=== PATIENT | female | born 1960 | race Caucasian/White ===

== ENCOUNTER 2016-09-28 08:33 | Day surgery (SDC) | payer OTHER ==
[2016-09-23 10:58] LABS: HEMATOCRIT 42.5 % (36.0-47.0); HEMOGLOBIN 13.5 g/dL (12.0-15.5); MEAN CORPUSCULAR HEMOGLOBIN 27.4 pg (27.0-33.4); MEAN CORPUSCULAR HGB CONC 31.7 g/dL (32.0-36.0); MEAN CORPUSCULAR VOLUME 87 fl (80-97); RED BLOOD COUNT 4.91 10^6/uL (3.72-5.28); RED CELL DISTRIBUTION WIDTH 14.7 % (11.5-14.0); WHITE BLOOD COUNT 10.8 10^3/uL (4.0-10.5)
[2016-09-23 11:36] LABS: ANION GAP 15 (5-19); BLOOD UREA NITROGEN 18 mg/dL (7-20); CALCIUM 9.6 mg/dL (8.4-10.2); CARBON DIOXIDE 27 mmol/L (22-30); CHLORIDE 100 mmol/L (98-107); CREATININE RESULT 0.81 mg/dL (0.52-1.25); GLUCOSE 167 mg/dL (75-110); POTASSIUM 4.5 mmol/L (3.6-5.0); SODIUM 141.7 mmol/L (137-145)
[2016-09-23 11:52] LABS: APPEARANCE,URINE CLOUDY; BILIRUBIN,URINE NEGATIVE (NEGATIVE); GLUCOSE, URINE NEGATIVE (NEGATIVE); KETONES,URINE NEGATIVE (NEGATIVE); LEUKOCYTE ESTERASE,URINE LARGE (NEGATIVE); NITRITE,URINE POSITIVE (NEGATIVE); PROTEIN,URINE NEGATIVE (NEGATIVE); URINE SPECIFIC GRAVITY 1.014; UROBILINOGEN,URINE NEGATIVE mg/dL (<2.0)
--- NOTE | 2016-09-23 14:57 | EKG REPORT ---
SEVERITY:- NORMAL ECG - SINUS RHYTHM : Confirmed by: Cheryl Chavira 23-Sep-2016 14:56:53
[~2016-09-28 08:33] MED LIST: BUPIVACAINE HCL 0.25 % INJ/PF (2.5 MG/1 ML) 30 ML VIAL ONE; CEFAZOLIN 2 GM/D5W RTU 2 GM/50 ML RTUPB IV PRN; LACTATED RINGERS 1000 ML IV PRN; LIDOCAINE 0.5% INJ-PF (5 MG/ML) 50 ML SDV SUBCUT PRN; LIDOCAINE 1%/EPINEPHRINE INJ 20 ML VIAL ONE
[2016-09-28] MEDS ORDERED: METOCLOPRAMIDE HCL INJ/PF 10 MG/2 ML SDV ONE (09:04)
[2016-09-28] MEDS ORDERED: FAMOTIDINE INJ/PF 20 MG/2 ML SDV IV ONE (09:04)
[2016-09-28] MEDS ORDERED: FENTANYL CITRATE INJ/PF 100 MCG/2 ML AMPUL ONE (09:21)
[2016-09-28] MEDS ORDERED: PROPOFOL INJ 200 MG/20 ML VIAL IV ONE (09:22)
[2016-09-28] MEDS ORDERED: MIDAZOLAM 2 MG/2 ML INJ ONE (09:22)
[2016-09-28] MEDS ORDERED: FENTANYL CITRATE INJ/PF 100 MCG/2 ML AMPUL IV PRN ×3 (09:51)
[2016-09-28] MEDS ORDERED: OXYCODONE-ACETAMINOPHEN 5-325 MG TABLET PO PRN ×2 (09:51)
[2016-09-28] MEDS ORDERED: MEPERIDINE HCL/PF INJ 25 MG/1 ML DISP.SYRIN IV PRN (09:51)
[2016-09-28] MEDS ORDERED: PROMETHAZINE HCL INJ 25 MG/1 ML VIAL IV PRN ×2 (09:51)
[2016-09-28] MEDS ORDERED: DIPHENHYDRAMINE HCL 50 MG/ML VIAL IV PRN (09:51)
[2016-09-28] MEDS ORDERED: MORPHINE SULFATE 10 MG/ML INJ IV PRN (09:51)
--- NOTE | 2016-09-28 10:05 | Operative Report ---
Operative Report DATE OF SURGERY: 09/28/16 PREOPERATIVE DIAGNOSIS: Right carpal tunnel syndrome OPERATION: Right carpal tunnel release SURGEON: NOAH DUONG ANESTHESIA: LMAC ESTIMATED BLOOD LOSS: minimal PROCEDURE: With the patient supine on the operating table the right upper extremity is prepped and draped in a sterile fashion. The skin overlying the volar radiocarpal joint is insufflated with accommodation of Marcaine and Xylocaine. Subsequent longitudinal incision was made beginning just ulnar to the palmaris fascia, and extending proximally across radiocarpal joint into the thenar crease. Sharp dissection was used to carry incision down to the ventral fascia. This is divided longitudinally. The underlying median nerve is easily identified and demonstrates an hourglass configuration. The release continues distally until there is no further compression of the median nerve. This point the wound is irrigated. Hemostasis obtained with bipolar cautery. The wound is reapproximated using interrupted Vicryl followed by Steri-Strips and Dermabond. A sterile compressive dressing is applied and the patient's returned to the PACU in satisfactory condition.
[2016-09-28] MEDS ORDERED: ONDANSETRON HCL INJ/PF 4 MG/2 ML SDV IV PRN (10:23)
[2016-09-28] MEDS ORDERED: OXYCODONE HCL IR 5 MG TABLET PO PRN (10:23)
[2016-09-28] MEDS ORDERED: ACETAMINOPHEN 100 ML IV ONE (10:39)
[2016-09-28 12:18] VITALS: BP 126/59
[2016-09-28] MEDS ORDERED: LIDOCAINE 2% INJ-PF (20 MG/ML) 10 ML AMPUL ONE (14:31)
== END 2016-09-28 12:05 | disposition home or self-care (01) ==
LOC: OROUT 08:33
PROVIDERS: ATTEND Orthopaedic Surgery
PROC: 01N50ZZ Release Median Nerve, Open Approach (ICD-10-PCS; principal; 2016-09-28 10:45)
DX: G56.01 Carpal tunnel syndrome, right upper limb (principal); E11.9 Type 2 diabetes mellitus without complications; E78.5 Hyperlipidemia, unspecified; M19.90 Unspecified osteoarthritis, unspecified site; E66.9 Obesity, unspecified; Z88.8 Allergy status to other drugs, medicaments and biological substances; Z79.84 Long term (current) use of oral hypoglycemic drugs; Z90.5 Acquired absence of kidney; Z85.528 Personal history of other malignant neoplasm of kidney
CPT/HCPCS: 93005; 36415; 82962; 85027; 80048; 81001; 93010; 64721; J2250; J3010; J3490 ×2; J2765; J2704; S0028; J0690; J0131; 1810

== ENCOUNTER → 2017-01-10 | Outpatient (CLI) | payer OTHER ==
[2017-01-10 11:18] LABS: ABSOLUTE BASOPHILS # (AUTO) 0.1 10^3/uL (0.0-0.2); ABSOLUTE EOSINOPHILS # (AUTO) 0.2 10^3/uL (0.0-0.6); ABSOLUTE LYMPHOCYTES (AUTO) 2.6 10^3/uL (0.5-4.7); ABSOLUTE MONOCYTES (AUTO) 0.6 10^3/uL (0.1-1.4); ABSOLUTE NEUT (AUTO) 7.2 10^3/uL (1.7-8.2); BASOPHILS % (AUTO) 0.5 % (0-2); EOSINOPHILS % (AUTO) 1.6 % (0-6); HEMOGLOBIN 13.2 g/dL (12.0-15.5); HGB HCT DIFFERENCE 0.6; LYMPHOCYTES % (AUTO) 24.2 % (13-45); MEAN CORPUSCULAR HEMOGLOBIN 28.8 pg (27.0-33.4); MEAN CORPUSCULAR HGB CONC 33.7 g/dL (32.0-36.0); MEAN CORPUSCULAR VOLUME 85 fl (80-97); MONOCYTES % (AUTO) 5.5 % (3-13); RED BLOOD COUNT 4.58 10^6/uL (3.72-5.28); RED CELL DISTRIBUTION WIDTH 14.7 % (11.5-14.0); SEGMENTED NEUTROPHILS % (AUTO) 68.2 % (42-78); WHITE BLOOD COUNT 10.6 10^3/uL (4.0-10.5)
[2017-01-10 11:39] LABS: ANION GAP 15 (5-19); BLOOD UREA NITROGEN 15 mg/dL (7-20); CALCIUM 10.1 mg/dL (8.4-10.2); CARBON DIOXIDE 25 mmol/L (22-30); CHLORIDE 102 mmol/L (98-107); CREATININE RESULT 0.85 mg/dL (0.52-1.25); GLUCOSE 246 mg/dL (75-110); POTASSIUM 4.4 mmol/L (3.6-5.0); SODIUM 142.4 mmol/L (137-145)
--- NOTE | 2017-01-10 13:25 | EKG REPORT ---
SEVERITY:- NORMAL ECG - SINUS RHYTHM : Confirmed by: True Parks MD 10-Jan-2017 13:24:34
[2017-01-11 13:31] LABS: AMORPHOUS SEDIMENT,URINE TRACE /HPF; APPEARANCE,URINE CLOUDY; BILIRUBIN,URINE NEGATIVE (NEGATIVE); GLUCOSE, URINE NEGATIVE (NEGATIVE); KETONES,URINE NEGATIVE (NEGATIVE); LEUKOCYTE ESTERASE,URINE LARGE (NEGATIVE); NITRITE,URINE POSITIVE (NEGATIVE); PROTEIN,URINE NEGATIVE (NEGATIVE); UROBILINOGEN,URINE NEGATIVE mg/dL (<2.0)
== END ==
LOC: OD 10:43
PROVIDERS: ATTEND Orthopaedic Surgery
DX: Z01.818 Encounter for other preprocedural examination (principal)
CPT/HCPCS: 36415; 71020; 80048; 81001; 83036; 85025; 93005; 93010

== ENCOUNTER → 2017-01-16 | Outpatient (CLI) | payer OTHER | LOC: RAD 13:52 | PROVIDERS: ATTEND Urology | DX: E27.9 Disorder of adrenal gland, unspecified (principal) | CPT/HCPCS: 74150 ==

== ENCOUNTER 2017-02-27 05:31 | Inpatient (IN) | payer OTHER ==
[2017-02-23 12:21] LABS: HEMATOCRIT 40.4 % (36.0-47.0); HEMOGLOBIN 13.4 g/dL (12.0-15.5); HGB HCT DIFFERENCE -0.2; MEAN CORPUSCULAR HEMOGLOBIN 28.1 pg (27.0-33.4); MEAN CORPUSCULAR HGB CONC 33.1 g/dL (32.0-36.0); MEAN CORPUSCULAR VOLUME 85 fl (80-97); RED BLOOD COUNT 4.77 10^6/uL (3.72-5.28); RED CELL DISTRIBUTION WIDTH 14.9 % (11.5-14.0); WHITE BLOOD COUNT 11.5 10^3/uL (4.0-10.5)
[2017-02-23 12:55] LABS: ANION GAP 13 (5-19); BLOOD UREA NITROGEN 13 mg/dL (7-20); CALCIUM 9.7 mg/dL (8.4-10.2); CARBON DIOXIDE 25 mmol/L (22-30); CHLORIDE 104 mmol/L (98-107); CREATININE RESULT 0.85 mg/dL (0.52-1.25); GLUCOSE 150 mg/dL (75-110); POTASSIUM 4.6 mmol/L (3.6-5.0); SODIUM 141.5 mmol/L (137-145)
[2017-02-23 13:03] LABS: APPEARANCE,URINE SLIGHTLY-CLOUDY; BILIRUBIN,URINE NEGATIVE (NEGATIVE); GLUCOSE, URINE NEGATIVE (NEGATIVE); KETONES,URINE NEGATIVE (NEGATIVE); LEUKOCYTE ESTERASE,URINE TRACE (NEGATIVE); NITRITE,URINE NEGATIVE (NEGATIVE); PROTEIN,URINE NEGATIVE (NEGATIVE); URINE SPECIFIC GRAVITY 1.016; UROBILINOGEN,URINE NEGATIVE mg/dL (<2.0)
[~2017-02-27 05:31] MED LIST changes: -BUPIVACAINE HCL 0.25 % INJ/PF (2.5 MG/1 ML) 30 ML VIAL ONE; +BUPIVACAINE INJ/PF LIPOSOME/PF 266 MG/20 ML SDV INFIL PRN; -CEFAZOLIN 2 GM/D5W RTU 2 GM/50 ML RTUPB IV PRN; +CEFAZOLIN INJ 1 GM VIAL IV PRN; +IBUPROFEN 800 MG in NORMAL SALINE 250 ML IV PRN; +LANSOPRAZOLE 15 MG TAB.RAP.DR PO PRN; -LIDOCAINE 1%/EPINEPHRINE INJ 20 ML VIAL ONE; +OXYCODONE HCL SR 10 MG TABLET PO PRN; +SCOPOLAMINE HYDROBROMIDE 1.5 MG PATCH.TD72 TD PRN; +VANCOMYCIN HCL 1,000 MG in DEXTROSE 5%-WATER 250 ML IV PRN
[2017-02-27] MEDS ORDERED: THROMBIN (BOVINE) 5000 UNIT EPITAXIS KIT ONE (06:53)
[2017-02-27] MEDS ORDERED: THROMBIN (BOVINE) TOPICAL 20000 UNIT VIAL ONE (06:53)
[2017-02-27] MEDS ORDERED: BUPIVACAINE INJ/PF LIPOSOME/PF 266 MG/20 ML SDV ONE (06:53)
[2017-02-27] MEDS ORDERED: DEXMEDETOMIDINE INJ 80 MCG/20 ML VIAL IV ONE (07:18)
[2017-02-27] MEDS ORDERED: MIDAZOLAM 2 MG/2 ML INJ ONE (07:18)
[2017-02-27] MEDS ORDERED: TRANEXAMIC ACID INJ/PF 1,000 MG/10 ML SDV IV ONE ×3 (07:18→11:00)
[2017-02-27] MEDS ORDERED: PROPOFOL INJ 200 MG/20 ML VIAL IV ONE (07:18)
[2017-02-27] MEDS ORDERED: MORPHINE SULFATE 10 MG/ML INJ ONE (07:19)
[2017-02-27] MEDS ORDERED: KETAMINE HCL INJ 500 MG/10 ML VIAL ONE (07:19)
[2017-02-27] MEDS ORDERED: DIPHENHYDRAMINE HCL 50 MG/ML VIAL IV PRN ×2 (08:23→08:47)
[2017-02-27] MEDS ORDERED: MEPERIDINE HCL/PF INJ 25 MG/1 ML DISP.SYRIN IV PRN (08:23)
[2017-02-27] MEDS ORDERED: OXYCODONE-ACETAMINOPHEN 5-325 MG TABLET PO PRN ×2 (08:23)
[2017-02-27] MEDS ORDERED: MORPHINE SULFATE 10 MG/ML INJ IV PRN ×3 (08:23→08:47)
[2017-02-27] MEDS ORDERED: PROMETHAZINE HCL INJ 25 MG/1 ML VIAL IV PRN ×2 (08:23)
[2017-02-27] MEDS ORDERED: FENTANYL CITRATE INJ/PF 100 MCG/2 ML AMPUL IV PRN ×3 (08:23)
[2017-02-27] MEDS ORDERED: METFORMIN HCL PO PRN (08:47)
[2017-02-27] MEDS ORDERED: ZOLPIDEM TARTRATE 5 MG TABLET PO PRN (08:47)
[2017-02-27] MEDS ORDERED: MORPHINE SULFATE 10 MG/ML INJ IM PRN (08:47)
[2017-02-27] MEDS ORDERED: MAG HYDROX/AL HYDROX/SIMETH SUSP 30 ML UDCUP PO PRN (08:47)
[2017-02-27] MEDS ORDERED: RINGERS SOLUTION,LACTATED 1,000 ML IV PRN (08:47)
[2017-02-27] MEDS ORDERED: ONDANSETRON HCL INJ/PF 4 MG/2 ML SDV IV PRN (08:47)
[2017-02-27] MEDS ORDERED: ACETAMINOPHEN 325 MG TABLET PO PRN (08:47)
[2017-02-27] MEDS ORDERED: ONDANSETRON 4 MG TAB.RAPDIS PO PRN (08:47)
--- NOTE | 2017-02-27 08:47 | Operative Report ---
Operative Report DATE OF SURGERY: 02/27/17 PREOPERATIVE DIAGNOSIS: Left knee arthritis OPERATION: Left knee arthroplasty SURGEON: NOAH DUONG ANESTHESIA: Spinal TISSUE REMOVED OR ALTERED: Bone to pathology ESTIMATED BLOOD LOSS: 100 PROCEDURE: Implants used: Femur: Triathlon #6 CR femur Tibia: 5 tibia Tibial liner: 11 mm CS insert Patella: 32 mm oval patella Procedure with the patient supine on the operating table the left the limb is prepped and draped in a sterile fashion. The limb was elevated for exsanguination and the tourniquet inflated to 280 torr. A standard midline median parapatellar approach the knee is taken. Access is gained to the femoral canal through the intercondylar notch. Intramedullary alignment instrumentation used to resect 10 mm of distal femur in 5 of valgus. Sizing guide indicated a size 6 femur. Appropriate cutting jig is then used to fashion anterior posterior and chamfer cuts. A trial reduction femurs performed and this is judged to be adequate. Attention was next turned to the tibia. Using an extra medullary alignment system 11 millimeters was resected off the lateral tibial plateau. This is sized to a size 5 tibia. A trial reduction was now performed with a 6 femur and a 5 tibia using a 11 millimeters spacer. It is full extension and central patellofemoral tracking. The articular surface the patella was next resected using an oscillating saw. All trial implants were removed. Polymethylmethacrylate is mixed and used to cement the above implants in place. On adequate curing the cement excess cement was removed the tourniquet was deflated hemostasis obtained the wound is then closed in layers using interrupted Vicryl followed by evelina. A sterile compressive dressing was applied and the patient returned to recovery room in satisfactory condition.
[2017-02-27] MEDS ORDERED: INSULIN LISPRO 100 UNIT/ML 3 ML VIAL SUBCUT PRN (09:12)
[2017-02-27] MEDS ORDERED: DEXTROSE 40% GEL 15 GM TUBE PO PRN (09:12)
[2017-02-27] MEDS ORDERED: DEXTROSE 50%-WATER SYRINGE 12.5 GM/25 ML DOSE IV PRN (09:12)
[2017-02-27] MEDS ORDERED: DEXTROSE 40% GEL 15 GM TUBE X 2 PO PRN (09:12)
[2017-02-27] MEDS ORDERED: DEXTROSE 50%-WATER SYRINGE 25 GM/50 ML DOSE IV PRN (09:12)
[2017-02-27] MEDS ORDERED: GLUCAGON,HUMAN RECOMB 1 MG INJ IM PRN (09:12)
--- NOTE | 2017-02-27 09:59 | RADIOLOGY REPORT (SQ) ---
EXAM DESCRIPTION: KNEE LEFT 2 VIEWS COMPLETED DATE/TIME: 02/27/2017 9:24 am REASON FOR STUDY: Post OP -Long Cassette in PACU M17.12 UNILATERAL PRIMARY OSTEOARTHRITIS, LEFT KNE E COMPARISON: None. NUMBER OF VIEWS: Left knee two views TECHNIQUE: Digital radiographic images of the left knee post-procedure. LIMITATIONS: None. FINDINGS: BONES: No worrisome or unexpected findings post-procedure. DEVICE: Total knee prosthesis with patellar resurfacing SOFT TISSUES: No worrisome findings. Expected postoperative soft tissue changes. IMPRESSION: SATISFACTORY POSTOPERATIVE LEFT KNEE. TECHNICAL DOCUMENTATION: JOB ID: [id number] [employer]- All Rights Reserved
[2017-02-27] MEDS ORDERED: ERGOCALCIFEROL 5000 UNIT PO SCH (10:00)
[2017-02-27] MEDS ORDERED: RINGERS SOLUTION,LACTATED 500 ML IV ONE (11:00)
[2017-02-27] MEDS ORDERED: LIDOCAINE 2% INJ-PF (20 MG/ML) 10 ML AMPUL ONE (12:23)
[2017-02-27] MEDS ORDERED: GLYCOPYRROLATE INJ 0.4 MG/2 ML VIAL ONE (12:23)
[2017-02-27] MEDS ORDERED: ONDANSETRON HCL INJ/PF 4 MG/2 ML SDV ONE (12:23)
[2017-02-27] MEDS ORDERED: METOCLOPRAMIDE HCL INJ/PF 10 MG/2 ML SDV ONE (12:23)
[2017-02-27] MEDS ORDERED: PHENYLEPHRINE HCL INJ/PF 10 MG/1 ML SDV ONE (12:23)
[2017-02-27] MEDS: PRENATAL VITAMIN W-O CA NO5/FE FUMARATE/FA CAPSULE PO SCH (13:30)
[2017-02-27] MEDS: CHOLECALCIFEROL (D3) 1,000 UNIT TABLET PO SCH (13:31)
[2017-02-27] MEDS: OXYCODONE HCL IR 5 MG TABLET PO PRN (13:49)
[2017-02-27] MEDS: IBUPROFEN 800 MG in NORMAL SALINE 250 ML IV SCH (16:08)
[2017-02-27] MEDS: SENNOSIDES/DOCUSATE 8.6-50 MG 1 EACH TABLET PO SCH (17:42)
[2017-02-27] MEDS: MORPHINE SULFATE 10 MG/ML INJ IV PRN ×2 (17:46→21:44)
[2017-02-27] MEDS ORDERED: VANCOMYCIN HCL 1,000 MG in DEXTROSE 5%-WATER 250 ML IV ONE (21:00)
[2017-02-27] MEDS: RIVAROXABAN 10 MG TABLET PO SCH (21:44)
[2017-02-27] MEDS: OXYCODONE HCL SR 10 MG TABLET PO SCH (21:44)
[2017-02-27] MEDS ORDERED: (PENDING PHARMACY ID) (Pravastatin Sodium [Pravastatin Sodium] 20 MG) PO SCH (22:00)
[2017-02-28] MEDS: IBUPROFEN 800 MG in NORMAL SALINE 250 ML IV SCH ×2 (00:18→08:43)
[2017-02-28] MEDS: LANSOPRAZOLE 30 MG TAB.RAP.DR PO SCH (06:26)
[2017-02-28 07:25] LABS: HEMATOCRIT 35.8 % (36.0-47.0); HEMOGLOBIN 11.7 g/dL (12.0-15.5); HGB HCT DIFFERENCE -0.7; MEAN CORPUSCULAR HEMOGLOBIN 28.1 pg (27.0-33.4); MEAN CORPUSCULAR HGB CONC 32.7 g/dL (32.0-36.0); MEAN CORPUSCULAR VOLUME 86 fl (80-97); RED BLOOD COUNT 4.16 10^6/uL (3.72-5.28); RED CELL DISTRIBUTION WIDTH 14.3 % (11.5-14.0); WHITE BLOOD COUNT 12.1 10^3/uL (4.0-10.5)
[2017-02-28 07:49] LABS: ANION GAP 10 (5-19); BLOOD UREA NITROGEN 12 mg/dL (7-20); CALCIUM 8.9 mg/dL (8.4-10.2); CARBON DIOXIDE 26 mmol/L (22-30); CHLORIDE 101 mmol/L (98-107); CREATININE RESULT 0.99 mg/dL (0.52-1.25); GLUCOSE 183 mg/dL (75-110); POTASSIUM 4.5 mmol/L (3.6-5.0)
[2017-02-28] MEDS: OXYCODONE HCL IR 5 MG TABLET PO PRN ×2 (08:42→19:06)
[2017-02-28] MEDS: OXYCODONE HCL SR 10 MG TABLET PO SCH ×2 (09:12→22:35)
[2017-02-28] MEDS: PRENATAL VITAMIN W-O CA NO5/FE FUMARATE/FA CAPSULE PO SCH (09:13)
[2017-02-28] MEDS: CHOLECALCIFEROL (D3) 1,000 UNIT TABLET PO SCH (09:13)
[2017-02-28] MEDS: SENNOSIDES/DOCUSATE 8.6-50 MG 1 EACH TABLET PO SCH ×2 (09:13→19:00)
[2017-02-28] MEDS ORDERED: METFORMIN HCL PO SCH (18:00)
[2017-02-28] MEDS ORDERED: METFORMIN HCL 500 MG TABLET PO ONE (19:30)
[2017-02-28] MEDS: RIVAROXABAN 10 MG TABLET PO SCH (22:35)
[2017-03-01] MEDS: LANSOPRAZOLE 30 MG TAB.RAP.DR PO SCH (05:52)
[2017-03-01 06:14] LABS: HEMATOCRIT 32.6 % (36.0-47.0); HEMOGLOBIN 10.8 g/dL (12.0-15.5); HGB HCT DIFFERENCE -0.2; MEAN CORPUSCULAR HGB CONC 33.1 g/dL (32.0-36.0); MEAN CORPUSCULAR VOLUME 85 fl (80-97); RED BLOOD COUNT 3.86 10^6/uL (3.72-5.28); RED CELL DISTRIBUTION WIDTH 14.8 % (11.5-14.0); WHITE BLOOD COUNT 13.3 10^3/uL (4.0-10.5)
--- NOTE | 2017-03-01 07:40 | PDOC DISCHARGE SUMMARY ---
General - Admit/Disc Date/PCP Admission Date/Primary Care Provider: 02/27/17 05:31 MARIPOSA SMITH MD Discharge Date: 03/01/17 - Discharge Diagnosis (1) Arthritis of left knee Is this a current diagnosis for this admission?: Yes - Additional Information Resuscitation Status: Full Code Discharge Activity: Balance Activity w/Rest Home Medications: Pravastatin Sodium 20 mg PO QHS 09/23/16 Dulaglutide [Trulicity] 0.75 mg SQ MO@1000 02/28/17 Ergocalciferol (Vitamin D2) [Vitamin D2] 5,000 unit PO DAILY 02/28/17 Metformin HCl [Metformin HCl ER] 2,250 mg PO PCSUPPER 02/28/17 Oxycodone HCl [Oxy-Ir 5 mg Tablet] 5 mg PO Q6HP PRN #0 tablet 03/01/17 Rivaroxaban [Xarelto 10 mg Tablet] 10 mg PO QHS #0 tablet 03/01/17 History of Present Illness History of Present Illness: DEVI PERRY is a 56 year old female with left knee pain and functional disability secondary osteoarthritis. Patient is admitted for elective left knee arthroplasty. Hospital Course Hospital Course: Admitted through the operating room where she undergoes uncomplicated left knee arthroplasty. She is returned to the floor in satisfactory condition. She makes excellent progress with physical therapy. She substrate for discharge home with home health nursing, home health physical therapy, wheeled walker, bedside commode. Physical Exam Vital Signs: Temp Pulse Resp BP Pulse Ox 37.5 C 104 H 16 143/63 H 93 03/01/17 03:10 03/01/17 00:36 03/01/17 00:36 03/01/17 00:36 03/01/17 00:36 Intake & Output 02/28/17 03/01/17 03/02/17 06:59 06:59 06:59 Intake Total 7970 1878 Output Total 6125 Balance 1825 1878 General appearance: PRESENT: no acute distress, obese Head exam: PRESENT: normocephalic Eye exam: PRESENT: EOMI Respiratory exam: PRESENT: unlabored Cardiovascular exam: PRESENT: RRR Pulses: PRESENT: +1 pedal pulses bilateral Vascular exam: PRESENT: normal capillary refill GI/Abdominal exam: PRESENT: soft Rectal exam: PRESENT: deferred Musculoskeletal exam: PRESENT: other Neurological exam: PRESENT: alert, awake, oriented to person, oriented to place , oriented to time, oriented to situation, CN II-XII grossly intact. ABSENT: motor sensory deficit Psychiatric exam: PRESENT: appropriate affect, normal mood. ABSENT: homicidal ideation, suicidal ideation Skin exam: PRESENT: dry, intact, warm. ABSENT: cyanosis, rash Results Laboratory Results: 03/01/17 05:42 02/28/17 06:47 02/28/17 03/01/17 06:47 05:42 WBC 13.3 H RBC 3.86 Hgb 10.8 L Hct 32.6 L MCV 85 MCH 28.0 MCHC 33.1 RDW 14.8 H Plt Count 191 Sodium 137.0 Potassium 4.5 Chloride 101 Carbon Dioxide 26 Anion Gap 10 BUN 12 Creatinine 0.99 Est GFR ( Amer) > 60 Est GFR (Non-Af Amer) 58 L Glucose 183 H Calcium 8.9 Impressions: Knee X-Ray 02/27/17 08:48 IMPRESSION: SATISFACTORY POSTOPERATIVE LEFT KNEE. Status: Imported from PACS Plan Discharge Plan: Discharge home with home health nursing, home health physical therapy, will walker, bedside commode. Visiting nurse service will change the left knee picot dressing on postop day #7 and replaced with an OpSite. Follow-up will be with Dr. Syed and [facility] for surgery in 2 weeks for staple removal.
[2017-03-01] MEDS ORDERED: METFORMIN HCL 500 MG TABLET PO SCH (08:00)
[2017-03-01 09:03] VITALS: BP 151/68
[2017-03-01] MEDS: CHOLECALCIFEROL (D3) 1,000 UNIT TABLET PO SCH (09:16)
[2017-03-01] MEDS: SENNOSIDES/DOCUSATE 8.6-50 MG 1 EACH TABLET PO SCH (09:17)
[2017-03-01] MEDS: OXYCODONE HCL SR 10 MG TABLET PO SCH (09:20)
[2017-03-01] MEDS: PRENATAL VITAMIN W-O CA NO5/FE FUMARATE/FA CAPSULE PO SCH (09:21)
[2017-03-01] MEDS ORDERED: ERGOCALCIFEROL 5000 UNIT PO SCH (10:00)
== END 2017-03-01 10:12 | disposition home health service (06) | DRG 470 ==
LOC: INOR 05:31 → 4S 11:24
PROVIDERS: ADMIT Orthopaedic Surgery; ATTEND Orthopaedic Surgery
PROC: 0SRD0J9 Replacement of Left Knee Joint with Synthetic Substitute, Cemented, Open Approach (ICD-10-PCS; principal; 2017-02-27 07:30)
DX: M17.12 Unilateral primary osteoarthritis, left knee (principal); G43.909 Migraine, unspecified, not intractable, without status migrainosus; M81.0 Age-related osteoporosis without current pathological fracture; E11.9 Type 2 diabetes mellitus without complications; Z96.651 Presence of right artificial knee joint; Z79.899 Other long term (current) drug therapy; Z90.5 Acquired absence of kidney; Z83.6 Family history of other diseases of the respiratory system; Z82.49 Family history of ischemic heart disease and other diseases of the circulatory system
CPT/HCPCS: 01402; 36415; 80048; 81001; 82962; 83036; 85027; 88305; 88311; 94799; C9290; J0690; J1741; J1815; J2250; J2270; J2370; J2405; J2704; J2765; J3370; J3490; J7050; J7060; J7120

== ENCOUNTER 2017-05-21 08:45 | Inpatient (IN) | payer OTHER ==
--- NOTE | 2017-05-21 10:13 | ER Document Report ---
ED General - General Chief Complaint: Facial Swelling Stated Complaint: FACIAL PAIN Time Seen by Provider: 05/21/17 09:34 TRAVEL OUTSIDE OF THE [place] IN LAST 30 DAYS: No - HPI Notes: Patient is a 57-year-old diabetic female who presents to the ED complaining of left-sided facial swelling 1 day. Patient states that preceding the swelling she did have nasal congestion/discharge and hoarseness in her voice for the last week, but those symptoms have slowly resolved. Patient states that when the swelling started she then began to notice some dental pain as well. she is still eating and drinking without any difficulties. she is tried some over- the-counter meds with no relief of her symptoms. She has not noticed any obvious abscess or drainage in her mouth. Patient has an allergy to codeine. She denies any other significant past medical history. Denies any headache, fever, head injury, neck pain/stiffness, changes in vision/speech, URI, sore throat, drooling, hoarseness, chest pain, palpitations, syncope, cough, shortness of breath, wheeze, dyspnea, abdominal pain, nausea/vomiting/diarrhea, urinary retention, dysuria, hematuria, numbness/tingling, or rash. Denies any insect bite. - Related Data Allergies/Adverse Reactions: venom-wasp Allergy (Severe, Verified 05/21/17 08:56) Anaphylaxis codeine [Codeine] Allergy (Mild, Verified 05/21/17 08:56) Headache Past Medical History - Social History Smoking Status: Never Smoker Frequency of alcohol use: None Drug Abuse: None Family History: Reviewed & Not Pertinent - Past Medical History Cardiac Medical History: Reports: Hx Hypercholesterolemia - Good Cholesterol is too low Denies: Hx Atrial Fibrillation, Hx Congestive Heart Failure, Hx Coronary Artery Disease, Hx Heart Attack, Hx Hypertension, Hx Peripheral Vascular Disease , Hx Heart Murmur Pulmonary Medical History: Neurological Medical History: Denies: Hx Cerebrovascular Accident, Hx Seizures Endocrine Medical History: Reports: Hx Diabetes Mellitus Type 2. Denies: Hx Graves' Disease, Hx Hyperthyroidism, Hx Hypothyroidism Renal/ Medical History: Reports: Hx Kidney Stones. Denies: Hx End Stage Renal Disease, Hx Peritoneal Dialysis Musculoskeltal Medical History: Reports Hx Arthritis, Denies Hx Fibromyalgia, Denies Hx Multiple Sclerosis, Denies Hx Muscular Dystrophy Psychiatric Medical History: Denies: Hx Dementia Traumatic Medical History: Reports: Hx Fractures - left arm, left foot, middle finger/right hand, left thumb (all from sports) Past Surgical History: Reports: Hx Section, Hx Genitourinary Surgery - left kidney, Hx Kidney (Renal Surgery) - left kidney removed, Hx Orthopedic Surgery - b/l knees, Hx Tubal Ligation. Denies: Hx Appendectomy, Hx Bowel Surgery, Hx Cholecystectomy, Hx Coronary Artery Bypass Graft, Hx Gastric Bypass Surgery, Hx Herniorrhaphy, Hx Hysterectomy, Hx Mastectomy, Hx Pacemaker, Hx Tonsillectomy - Immunizations Hx Diphtheria, Pertussis, Tetanus Vaccination: Yes Hx Pneumococcal Vaccination: 05/12/15 Review of Systems - Review of Systems Notes: REVIEW OF SYSTEMS: CONSTITUTIONAL : Denies fever, chills, or sweats. EENT: see hpi CARDIOVASCULAR: Denies chest pain. Denies palpitations or racing or irregular heart beat. Denies ankle edema. RESPIRATORY: Denies cough, cold, or chest congestion. Denies shortness of breath, difficulty breathing, or wheezing. GASTROINTESTINAL: Denies abdominal pain or distention. Denies nausea, vomiting , or diarrhea. Denies blood in vomitus, stools, or per rectum. Denies black, tarry stools. Denies constipation. GENITOURINARY: Denies difficulty urinating, painful urination, burning, frequency, blood in urine, or discharge. MUSCULOSKELETAL: Denies back or neck pain or stiffness. Denies joint pain or swelling. SKIN: Denies rash, lesions or sores. HEMATOLOGIC : Denies easy bruising or bleeding. LYMPHATIC: Denies swollen, enlarged glands. NEUROLOGICAL: Denies confusion or altered mental status. Denies passing out or loss of consciousness. Denies dizziness or lightheadedness. Denies headache. Denies weakness or paralysis or loss of use of either side. Denies problems with gait or speech. Denies sensory loss, numbness, or tingling. ALL OTHER SYSTEMS REVIEWED AND NEGATIVE. Dictation was performed using [employer] voice recognition software Physical Exam - Vital signs Vitals: Temp Pulse Resp BP Pulse Ox 98.3 F 74 16 156/77 H 98 05/21/17 08:56 05/21/17 08:56 05/21/17 08:56 05/21/17 08:56 05/21/17 08:56 Notes: PHYSICAL EXAMINATION: GENERAL: Well-appearing, well-nourished and in no acute distress. HEAD: Atraumatic, normocephalic. EYES: Pupils equal round and reactive to light, extraocular movements intact, sclera anicteric, conjunctiva are normal. ENT: EAC clear b/l. TM's intact b/l without erythema, fluid, or perforation. Nares patent and without discharge. oropharynx clear without exudates. No tonsilar hypertrophy or erythema. Moist mucous membranes. No sinus tenderness. Uvula midline. No palatine shift. No tongue protrusion. No respiratory compromise. Face: + moderate swelling with mild erythema noted to the left maxillary area. Mouth: Poor dentition. + mild decay and mild gingivitis. No obvious abscess or discharge noted. No dental tenderness. NECK: Normal range of motion, supple without lymphadenopathy. No rigidity/ meningismus. LUNGS: Breath sounds clear to auscultation bilaterally and equal. No wheezes rales or rhonchi. HEART: Regular rate and rhythm without murmurs, rubs, gallops. NEUROLOGICAL: Cranial nerves grossly intact. Normal speech, normal gait. Normal sensory, motor exams PSYCH: Normal mood, normal affect. SKIN: Warm, Dry, normal turgor, no rashes or lesions noted. Course - Re-evaluation Re-evalutation: 05/21/17 13:20 Patient is an afebrile, well-hydrated, 57-year-old female with left facial swelling and cellulitis. Patient is a diabetic with one kidney. Vitals are stable. PE otherwise unremarkable at this time. CBC showed WBC of 12.4. CMP stable. CT of the face showed cellulitis w/o abscess. Reviewed case with Dr. Carlos who is in agreement with admit/plan. Reviewed with Dr. Meléndez ( Hospitalist) who will accept the patient. Dr. Meléndez came right down and evaluated the patient. He will be placing orders/antibiotics. Pt is in agreement with admit/plan. - Vital Signs Vital signs: Temp Pulse Resp BP Pulse Ox 98.3 F 74 18 156/77 H 98 05/21/17 08:56 05/21/17 08:56 05/21/17 09:20 05/21/17 08:56 05/21/17 08:56 - Laboratory Result Diagrams: 05/21/17 10:27 05/21/17 10:27 Laboratory results interpreted by me: 05/21/17 05/21/17 10:27 10:27 WBC 12.4 H RDW 16.0 H Absolute Neutrophils 8.9 H Glucose 154 H Discharge - Discharge Clinical Impression: Facial cellulitis Condition: Stable Disposition: ADMITTED INPATIENT Admitting Provider: Hospitalist - Dr. Meléndez Unit Admitted: Telemetry Referrals: JENELLE SMITH MD [Primary Care Provider] - Follow up as needed
[2017-05-21 10:38] LABS: ABSOLUTE BASOPHILS # (AUTO) 0.1 10^3/uL (0.0-0.2); ABSOLUTE EOSINOPHILS # (AUTO) 0.3 10^3/uL (0.0-0.6); ABSOLUTE LYMPHOCYTES (AUTO) 2.4 10^3/uL (0.5-4.7); ABSOLUTE MONOCYTES (AUTO) 0.7 10^3/uL (0.1-1.4); ABSOLUTE NEUT (AUTO) 8.9 10^3/uL (1.7-8.2); BASOPHILS % (AUTO) 0.7 % (0-2); EOSINOPHILS % (AUTO) 2.8 % (0-6); HEMATOCRIT 37.2 % (36.0-47.0); HEMOGLOBIN 12.4 g/dL (12.0-15.5); LYMPHOCYTES % (AUTO) 19.6 % (13-45); MEAN CORPUSCULAR HGB CONC 33.3 g/dL (32.0-36.0); MEAN CORPUSCULAR VOLUME 84 fl (80-97); MONOCYTES % (AUTO) 5.3 % (3-13); RED BLOOD COUNT 4.42 10^6/uL (3.72-5.28); SEGMENTED NEUTROPHILS % (AUTO) 71.6 % (42-78); WHITE BLOOD COUNT 12.4 10^3/uL (4.0-10.5)
[2017-05-21 10:55] LABS: ALANINE AMINOTRANSFERASE 39 U/L (9-52); ALBUMIN 3.8 g/dL (3.5-5.0); ALKALINE PHOSPHATASE 103 U/L (38-126); ANION GAP 10 (5-19); ASPARTATE AMINO TRANSFERASE 30 U/L (14-36); BILIRUBIN,DIRECT 0.4 mg/dL (0.0-0.4); BILIRUBIN,TOTAL 0.8 mg/dL (0.2-1.3); BLOOD UREA NITROGEN 12 mg/dL (7-20); CALCIUM 9.6 mg/dL (8.4-10.2); CARBON DIOXIDE 29 mmol/L (22-30); CHLORIDE 102 mmol/L (98-107); CREATININE RESULT 0.82 mg/dL (0.52-1.25); GLUCOSE 154 mg/dL (75-110); POTASSIUM 4.5 mmol/L (3.6-5.0); SODIUM 141.4 mmol/L (137-145); TOTAL PROTEIN 6.7 g/dL (6.3-8.2)
[2017-05-21] MEDS ORDERED: NORMAL SALINE 1000 ML 1,000 ML IV ONE (11:19)
--- NOTE | 2017-05-21 12:26 | RADIOLOGY REPORT (SQ) ---
EXAM DESCRIPTION: CT FACIAL AREA WITH COMPLETED DATE/TIME: 05/21/2017 11:45 am REASON FOR STUDY: left side facial swelling COMPARISON: None. TECHNIQUE: Post contrast images through the facial bones and orbits windowed for bone and soft tissu e. Additional coronal and sagittal reconstructed images reviewed. All images stored on PACS. All CT scanners at this facility use dose modulation, iterative reconstruction, and/or weight based d osing when appropriate to reduce radiation dose to as low as reasonably achievable (ALARA). [facility]: Dose Right [facility]: CareDose [facility]: Dose Right [facility]: Teradose 4D [facility]: Qteros CONTRAST TYPE AND DOSE: contrast/concentration: Isovue 300.00 mg/ml; Total Contrast Delivered: 50.0 ml; Total Saline Delivered: 26.1 ml RENAL FUNCTION: BUN 12 creatinine 0.8 RADIATION DOSE: Up-to-date CT equipment and radiation dose reduction techniques were employed. CTDIv ol: 30.4 mGy. DLP: 579 mGy-cm. . LIMITATIONS: None. FINDINGS: FACIAL BONES: No fracture or bone lesion. ORBITS: Intact. No fracture. Symmetric intact globes and retroorbital soft tissues. PARANASAL SINUSES: Clear. No significant mucosal thickening, mass or fluid. No nasal polyps. Maxilla ry sinus outlets are patent. SOFT TISSUES: Stranding of the left maxillary subcutaneous fat. No organized fluid collection. INFERIOR BRAIN: Limited view. No acute findings. OTHER: No other significant finding. IMPRESSION: Cellulitis. TECHNICAL DOCUMENTATION: JOB ID: [id number] Quality ID # [id number]: Final reports with documentation of one or more dose reduction techniques (e.g., Au tomated exposure control, adjustment of the mA and/or kV according to patient size, use of iterative reconstruction technique) 2010 [employer]- All Rights Reserved
[2017-05-21] MEDS ORDERED: ACETAMINOPHEN 325 MG TABLET PO PRN (13:27)
[2017-05-21] MEDS ORDERED: ONDANSETRON 4 MG TAB.RAPDIS PO PRN (13:27)
[2017-05-21] MEDS ORDERED: INSULIN REG, HUMAN 100 UNIT/ML 3 ML VIAL (PYX) SUBCUT PRN (14:24)
[2017-05-21] MEDS ORDERED: DEXTROSE 50%-WATER 25 GM/50 ML DISP.SYRIN IV PRN ×2 (14:24)
[2017-05-21] MEDS ORDERED: DEXTROSE 40% GEL 15 GM TUBE PO PRN ×2 (14:24)
[2017-05-21] MEDS ORDERED: GLUCAGON,HUMAN RECOMB 1 MG INJ IM PRN (14:24)
--- NOTE | 2017-05-21 14:24 | PDOC H&P ---
History of Present Illness Admission Date/PCP: 05/21/17 13:22 JENELLE SMITH MD Patient complains of: Left side facial swelling History of Present Illness: DEVI PERRY is a 57 year old female present with complaint for left sided facial swelling. Pt states that yesterday she noticed that her face was swelling. Pt states that she has had some nasal drainage which has been yellow/ green in color. Pt states that she has no history of MRSA. Pt states that her daughter has a history of MRSA. Pt states that her blood glucose has been elevated to 180 over the last several days. Pt states that his has a lot of dental caries and dental problems. Pt states that she has had a headache for the last few days. Pt states that she does not have problems with allergies and has never had a sinus infection. Past Medical History Cardiac Medical History: Reports: Hyperlipidema - Good Cholesterol is too low Denies: Atrial Fibrillation, Congestive Heart Failure, Coronary Artery Disease, Myocardial Infarction, Hypertension, Peripheral Vascular Disease, Heart Murmur Pulmonary Medical History: Neurological Medical History: Denies: Seizures Endocrine Medical History: Reports: Diabetes Mellitus Type 2 Denies: Hyperthyroidism, Hypothyroidism Renal/ Medical History: Denies: End Stage Renal Disease Musculoskeltal Medical History: Reports: Arthritis Denies: Fibromyalgia Psychiatric Medical History: Denies: Dementia Hematology: Past Surgical History Past Surgical History: Reports: Section, Orthopedic Surgery - b/l knees , Tubal Ligation Denies: Amputation, Appendectomy, Cholecystectomy, Coronary Artery Bypass Graft, Gastric Bypass Surgery, Herniorrhaphy, Hysterectomy, Mastectomy, Pacemaker, Tonsillectomy Social History Smoking Status: Never Smoker Hx Recreational Drug Use: No Hx Prescription Drug Abuse: No Family History Family History: COPD, Hypertension Parental Family History Reviewed: Yes Children Family History Reviewed: Yes Sibling(s) Family History Reviewed.: Yes Medication/Allergy Home Medications: Pravastatin Sodium 20 mg PO QHS 09/23/16 Dulaglutide [Trulicity] 0.75 mg SQ MO@1000 02/28/17 Ergocalciferol (Vitamin D2) [Vitamin D2] 5,000 unit PO DAILY 02/28/17 Metformin HCl [Metformin HCl ER] 2,250 mg PO PCSUPPER 02/28/17 Allergies/Adverse Reactions: venom-wasp Allergy (Severe, Verified 05/21/17 08:56) Anaphylaxis codeine [Codeine] Allergy (Mild, Verified 05/21/17 08:56) Headache Review of Systems Constitutional: PRESENT: other - Facial swelling Eyes: ABSENT: visual disturbances Ears: PRESENT: as per HPI Nose, Mouth, and Throat: PRESENT: headache(s), mouth pain, other - left facial pain Cardiovascular: ABSENT: chest pain, dyspnea on exertion, edema, orthropnea, palpitations Gastrointestinal: ABSENT: abdominal pain, constipation, diarrhea, hematemesis, hematochezia, nausea, vomiting Genitourinary: ABSENT: dysuria, hematuria Musculoskeletal: ABSENT: joint swelling Integumentary: ABSENT: rash, wounds Neurological: ABSENT: abnormal gait, abnormal speech, confusion, dizziness, focal weakness, syncope Psychiatric: ABSENT: anxiety, depression, homidical ideation, suicidal ideation Endocrine: ABSENT: cold intolerance, heat intolerance, polydipsia, polyuria Hematologic/Lymphatic: ABSENT: easy bleeding, easy bruising Physical Exam Vital Signs: Temp Pulse Resp BP Pulse Ox 98.3 F 74 18 156/77 H 98 05/21/17 08:56 05/21/17 08:56 05/21/17 09:20 05/21/17 08:56 05/21/17 08:56 General appearance: PRESENT: morbidly obese, other - Left sided facial swelling Head exam: PRESENT: atraumatic, normocephalic Eye exam: PRESENT: conjunctiva pink, EOMI. ABSENT: scleral icterus Ear exam: PRESENT: normal external ear exam Mouth exam: PRESENT: moist, other - + left maxillary gum tenderness to palpation , + positive for fluctuance over her left maxillary area Neck exam: ABSENT: carotid bruit, JVD, lymphadenopathy, thyromegaly Respiratory exam: PRESENT: clear to auscultation diamond. ABSENT: rales, rhonchi, wheezes Cardiovascular exam: PRESENT: RRR. ABSENT: diastolic murmur, rubs, systolic murmur Pulses: PRESENT: normal dorsalis pedis pul GI/Abdominal exam: PRESENT: normal bowel sounds, soft. ABSENT: distended, guarding, mass, organolmegaly, rebound, tenderness Rectal exam: PRESENT: deferred Extremities exam: PRESENT: full ROM. ABSENT: calf tenderness, clubbing, pedal edema Neurological exam: PRESENT: alert, awake, oriented to person, oriented to place , oriented to time, oriented to situation, CN II-XII grossly intact. ABSENT: motor sensory deficit Psychiatric exam: PRESENT: appropriate affect, normal mood. ABSENT: homicidal ideation, suicidal ideation Skin exam: PRESENT: dry, intact, warm. ABSENT: cyanosis, rash Results Impressions: Facial Bones CT 05/21/17 10:06 IMPRESSION: Cellulitis. Assessment & Plan - Diagnosis (1) Facial cellulitis Is this a current diagnosis for this admission?: Yes Plan: Most likely secondary to dental caries: We will place patient on clindamycin. Facial CT was reviewed. (2) Dental abscess Is this a current diagnosis for this admission?: Yes Plan: We will place patient on clindamycin. Anticipate antibiotics for the next 48- 36 hours and then switch to p.o. She will need to follow-up with oral maxillary surgeon as outpatient. (3) Diabetes mellitus Qualifiers: Diabetes mellitus type: type 2 Is this a current diagnosis for this admission?: Yes Plan: Place patient on sliding cell insulin. Will check hemoglobin A1c. (4) Morbid obesity with BMI of 45.0-49.9, adult Is this a current diagnosis for this admission?: Yes Plan: Discussed dietary changes (5) Dental caries Is this a current diagnosis for this admission?: Yes Plan: She will need to follow-up with dentist on regular basis for dental care - Time Time Spent: 30 to 50 Minutes Anticipated discharge: Home
[2017-05-21] MEDS: CLINDAMYCIN 600 MG/D5W RTU 600 MG/50 ML RTUPB IV SCH ×2 (15:16→21:03)
[2017-05-21] MEDS: TRAMADOL HCL 50 MG TABLET PO PRN ×2 (15:17→21:03)
[2017-05-21] MEDS ORDERED: METFORMIN HCL PO SCH (18:00)
[2017-05-21] MEDS ORDERED: ATORVASTATIN CALCIUM 10 MG TABLET PO SCH (22:00)
[2017-05-21] MEDS ORDERED: (PENDING PHARMACY ID) (Pravastatin Sodium [Pravastatin Sodium] 20 MG) PO SCH (22:00)
[2017-05-22] MEDS: TRAMADOL HCL 50 MG TABLET PO PRN ×2 (05:01→14:04)
[2017-05-22 05:07] LABS: ABSOLUTE EOSINOPHILS # (AUTO) 0.3 10^3/uL (0.0-0.6); ABSOLUTE LYMPHOCYTES (AUTO) 3.3 10^3/uL (0.5-4.7); ABSOLUTE MONOCYTES (AUTO) 0.8 10^3/uL (0.1-1.4); BASOPHILS % (AUTO) 0.4 % (0-2); EOSINOPHILS % (AUTO) 2.6 % (0-6); HEMATOCRIT 36.1 % (36.0-47.0); HEMOGLOBIN 11.7 g/dL (12.0-15.5); LYMPHOCYTES % (AUTO) 28.8 % (13-45); MEAN CORPUSCULAR HEMOGLOBIN 27.3 pg (27.0-33.4); MEAN CORPUSCULAR HGB CONC 32.5 g/dL (32.0-36.0); MEAN CORPUSCULAR VOLUME 84 fl (80-97); MONOCYTES % (AUTO) 6.9 % (3-13); RED CELL DISTRIBUTION WIDTH 15.9 % (11.5-14.0); SEGMENTED NEUTROPHILS % (AUTO) 61.3 % (42-78); WHITE BLOOD COUNT 11.4 10^3/uL (4.0-10.5)
[2017-05-22 05:25] LABS: ANION GAP 12 (5-19); BLOOD UREA NITROGEN 12 mg/dL (7-20); CALCIUM 9.4 mg/dL (8.4-10.2); CARBON DIOXIDE 28 mmol/L (22-30); CHLORIDE 99 mmol/L (98-107); CREATININE RESULT 0.91 mg/dL (0.52-1.25); GLUCOSE 198 mg/dL (75-110); POTASSIUM 4.3 mmol/L (3.6-5.0); SODIUM 138.5 mmol/L (137-145)
[2017-05-22] MEDS: CLINDAMYCIN 600 MG/D5W RTU 600 MG/50 ML RTUPB IV SCH ×2 (05:48→14:04)
[2017-05-22] MEDS ORDERED: (PENDING PHARMACY ID) (Dulaglutide [Trulicity] 0.75 MG) SQ SCH (10:00)
[2017-05-22 14:22] VITALS: BP 120/43
--- NOTE | 2017-05-22 14:24 | PDOC DISCHARGE SUMMARY ---
General - Admit/Disc Date/PCP Admission Date/Primary Care Provider: 05/21/17 13:27 JENELLE SMITH MD Discharge Date: 05/22/17 - Discharge Diagnosis (1) Facial cellulitis Is this a current diagnosis for this admission?: Yes Summary: Secondary to dental abscess: Patient was placed on IV clindamycin has demonstrated significant improvement. Patient will be discharged home on p.o. clindamycin. (2) Dental abscess Is this a current diagnosis for this admission?: Yes Summary: Patient was placed on IV clindamycin. Patient has demonstrated significant improvement in less than 24 hours. Will send patient home on p.o. clindamycin. Patient has been instructed to follow-up with dentistry in the next 2-3 days. (3) Diabetes mellitus Is this a current diagnosis for this admission?: Yes Summary: Patient's hemoglobin A1c was 6.1. Patient's blood sugars have been under good control here at our hospital. Patient will continue home regimen. (4) Morbid obesity with BMI of 45.0-49.9, adult Is this a current diagnosis for this admission?: Yes Summary: Encouraged patient to make dietary changes. (5) Dental caries Is this a current diagnosis for this admission?: Yes Summary: Pt to follow up with PCP in 2-3 days. - Additional Information Resuscitation Status: Full Code Discharge Diet: Diabetic Discharge Activity: Activity As Tolerated Home Medications: Pravastatin Sodium 20 mg PO QHS 09/23/16 Dulaglutide [Trulicity] 0.75 mg SQ MO@1000 02/28/17 Ergocalciferol (Vitamin D2) [Vitamin D2] 5,000 unit PO DAILY 02/28/17 Metformin HCl [Metformin HCl ER] 2,250 mg PO PCSUPPER 02/28/17 Acetaminophen [Tylenol 325 mg Tablet] 650 mg PO Q4HP PRN tablet 05/22/17 Clindamycin HCl 300 mg PO Q6H #40 capsule 05/22/17 Tramadol HCl [Ultram 50 mg Tablet] 50 mg PO Q6HP PRN #12 tablet 05/22/17 History of Present Illness History of Present Illness: DEVI PERRY is a 57 year old female present with complaint for left sided facial swelling. Pt states that yesterday she noticed that her face was swelling. Pt states that she has had some nasal drainage which has been yellow/ green in color. Pt states that she has no history of MRSA. Pt states that her daughter has a history of MRSA. Pt states that her blood glucose has been elevated to 180 over the last several days. Pt states that his has a lot of dental caries and dental problems. Pt states that she has had a headache for the last few days. Pt states that she does not have problems with allergies and has never had a sinus infection. Hospital Course Hospital Course: Patient is a 57-year-old female that was admitted to our facility due to left- sided facial swelling. Patient had facial CT which demonstrated stranding in the maxillary sinus. On physical exam patient has significant tenderness with dental caries noted on the left side of upper part of face. Patient's findings on physical exam appear to be more consistent with dental abscess. Patient was placed on clindamycin IV which demonstrated significant improvement the next following morning. Decision was made to discharge patient home on p.o. clindamycin. Patient was told that she will need to follow-up with PCP and the dentistry within 2-3 days. Physical Exam Vital Signs: Temp Pulse Resp BP Pulse Ox 98.9 F 74 16 119/50 L 95 05/22/17 12:24 05/22/17 12:24 05/22/17 12:24 05/22/17 12:24 05/22/17 12:24 Intake & Output 05/21/17 05/22/17 05/23/17 06:59 06:59 06:59 Intake Total 1020 60 Balance 1020 60 Weight 125.4 kg General appearance: PRESENT: other - She appears stated age with left-sided facial swelling greatly decreased. Head exam: PRESENT: atraumatic, normocephalic Eye exam: PRESENT: conjunctiva pink, EOMI. ABSENT: scleral icterus Ear exam: PRESENT: normal external ear exam Mouth exam: PRESENT: moist, tongue midline Neck exam: ABSENT: carotid bruit, JVD, lymphadenopathy, thyromegaly Respiratory exam: PRESENT: clear to auscultation diamond. ABSENT: rales, rhonchi, wheezes Cardiovascular exam: PRESENT: RRR. ABSENT: diastolic murmur, rubs, systolic murmur Pulses: PRESENT: normal dorsalis pedis pul Vascular exam: PRESENT: normal capillary refill GI/Abdominal exam: PRESENT: normal bowel sounds, soft. ABSENT: distended, guarding, mass, organolmegaly, rebound, tenderness Rectal exam: PRESENT: deferred Extremities exam: PRESENT: full ROM. ABSENT: calf tenderness, clubbing, pedal edema Neurological exam: PRESENT: alert, awake, oriented to person, oriented to place , oriented to time, oriented to situation, CN II-XII grossly intact. ABSENT: motor sensory deficit Psychiatric exam: PRESENT: appropriate affect, normal mood. ABSENT: homicidal ideation, suicidal ideation Skin exam: PRESENT: dry, warm. ABSENT: cyanosis, rash Results Laboratory Results: 05/22/17 04:34 05/22/17 04:34 05/22/17 05/22/17 04:34 04:34 WBC 11.4 H RBC 4.30 Hgb 11.7 L Hct 36.1 MCV 84 MCH 27.3 MCHC 32.5 RDW 15.9 H Plt Count 247 Seg Neutrophils % 61.3 Lymphocytes % 28.8 Monocytes % 6.9 Eosinophils % 2.6 Basophils % 0.4 Absolute Neutrophils 7.0 Absolute Lymphocytes 3.3 Absolute Monocytes 0.8 Absolute Eosinophils 0.3 Absolute Basophils 0.0 Sodium 138.5 Potassium 4.3 Chloride 99 Carbon Dioxide 28 Anion Gap 12 BUN 12 Creatinine 0.91 Est GFR ( Amer) > 60 Est GFR (Non-Af Amer) > 60 Glucose 198 H Calcium 9.4 Impressions: Facial Bones CT 05/21/17 10:06 IMPRESSION: Cellulitis.
[2017-05-22] MEDS ORDERED: ONDANSETRON 4 MG TAB.RAPDIS PO PRN (15:30)
[2017-05-22] MEDS ORDERED: ACETAMINOPHEN 325 MG TABLET PO PRN (15:30)
== END 2017-05-22 15:10 | disposition home or self-care (01) | DRG 158 ==
LOC: ER 08:45 → EH 13:22 → UNDOADMIN 13:22 → EH 13:27 → 5 14:21
PROVIDERS: ADMIT Emergency Medicine; ATTEND Emergency Medicine
DX: K04.7 Periapical abscess without sinus (principal); L03.211 Cellulitis of face; Z68.42 Body mass index [BMI] 45.0-49.9, adult; K02.9 Dental caries, unspecified; E11.9 Type 2 diabetes mellitus without complications; E66.01 Morbid (severe) obesity due to excess calories; Z90.5 Acquired absence of kidney
CPT/HCPCS: 36415; 70487; 80048; 80053; 82962; 83036; 85025; 87040; 87077; 87186; 96360; 99285; J1815; J7030

== ENCOUNTER → 2017-06-22 | Outpatient (CLI) | payer OTHER ==
--- NOTE | 2017-06-22 16:12 | RADIOLOGY REPORT (SQ) ---
EXAM DESCRIPTION: MRI LUMBAR SPINE WITHOUT COMPLETED DATE/TIME: 06/22/2017 3:36 pm REASON FOR STUDY: RADICULOPATHY, LUMBAR REGION M54.16 RADICULOPATHY, LUMBAR REGION COMPARISON: None. TECHNIQUE: Sagittal and Axial imaging includes T1, T2, STIR and gradient echo sequences. Coronal T2/ HASTE imaging. LIMITATIONS: None. FINDINGS: VISUALIZED UPPER ABDOMEN: Limited evaluation. No acute or suspicious findings suggested. SEGMENTATION: No transitional anatomy. The lowest well-developed disc space is labeled L5-S1. ALIGNMENT: Grade 1 anterolisthesis of L4 over L5 VERTEBRAE: Intact. BONE MARROW: Normal. No marrow replacement or reactive changes. DISC SIGNAL: Diffuse decreased T2 weighted intervertebral disc signal from L2-3 through L5-S1. POSTERIOR ELEMENTS: Generally intact. No pars defect evident. HARDWARE: None in the spine. CORD AND CONUS: Normal in size and signal intensity. Conus at the L1 level. SOFT TISSUES: No aortic aneurysm seen. No bulky retroperitoneal adenopathy or mass. No paraspinal mas s or fluid. T11-12: No central or foraminal stenosis. Mild bilateral facet hypertrophy. T12-L1: No central or foraminal stenosis. Mild bilateral facet hypertrophy. L1-L2: No central or foraminal stenosis. Mild posterior disc bulging, mild bilateral facet hypertrop hy. L2-L3: No central stenosis. Mild diffuse posterior disc bulging left greater than right and moderate bilateral facet hypertrophy are present. There is mild right and moderate left foraminal narrowing. L3-L4: Broad diffuse posterior disc bulging is present left greater than right with bulky bilateral f acet hypertrophy left greater than right. No central stenosis. No right foraminal narrowing. Mild inferior left foraminal narrowing. L4-L5: Grade 1 anterolisthesis of L4 over L5, broad diffuse posterior disc bulging and very bulky diamond ateral facet hypertrophy causes moderate central canal stenosis. There is effacement of the CSF arou nd the lumbar nerve roots, best shown on axial image 26. Moderate right, mild left foraminal narrowi ng is present without definite exiting L4 nerve root impingement. L5-S1: No central stenosis. Mild bilateral foraminal narrowing without exiting L5 nerve root impinge ment. Moderate bilateral facet hypertrophy. SACRUM: Visualized upper sacrum intact. OTHER: No other significant findings. IMPRESSION: Lower lumbar degenerative changes as above. TECHNICAL DOCUMENTATION: JOB ID: [id number] [employer] All Rights Reserved
== END ==
LOC: RAD 14:44
PROVIDERS: ATTEND Family Medicine
DX: M47.9 Spondylosis, unspecified (principal); M54.16 Radiculopathy, lumbar region
CPT/HCPCS: 72148

== ENCOUNTER → 2018-02-13 | Day surgery (SDC) | payer OTHER ==
[~2018-02-13] MED LIST changes: -BUPIVACAINE INJ/PF LIPOSOME/PF 266 MG/20 ML SDV INFIL PRN; -CEFAZOLIN INJ 1 GM VIAL IV PRN; -IBUPROFEN 800 MG in NORMAL SALINE 250 ML IV PRN; -LACTATED RINGERS 1000 ML IV PRN; -LANSOPRAZOLE 15 MG TAB.RAP.DR PO PRN; -LIDOCAINE 0.5% INJ-PF (5 MG/ML) 50 ML SDV SUBCUT PRN; +LIDOCAINE 1%/EPINEPHRINE INJ 20 ML VIAL ONE; -OXYCODONE HCL SR 10 MG TABLET PO PRN; -SCOPOLAMINE HYDROBROMIDE 1.5 MG PATCH.TD72 TD PRN; -VANCOMYCIN HCL 1,000 MG in DEXTROSE 5%-WATER 250 ML IV PRN
--- NOTE | 2018-02-16 09:42 | RADIOLOGY REPORT (SQ) ---
EXAM DESCRIPTION: STEREO BREAST BX; RIGHT DIG DX MAMMO NO CHG COMPLETED DATE/TIME: 02/13/2018 12:57 pm; 02/13/2018 12:58 pm REASON FOR STUDY: OTHER ABNORMAL AND INCONCLUSIVE FINDINGS ON DIAGNOSTIC IMAGING OF R BREAST; RT NUSRAT AST POST BIOPSY R92.8 OTH ABN AND INCONCLUSIVE FINDINGS ON DX IMAGING OF NUSRAT COMPARISON: Outside mammogram dated 10/25/2017. TECHNIQUE: Vacuum-assisted stereotactic-guided biopsy of the lesion in the right breast. Serial prog ress stereotactic and single digital images acquired. PROCEDURE: The procedure was discussed with the patient, including possible complications such as bleeding, infection, nondiagnostic sample or possible findings such as atypical ductal hyperplasia wh ich would require additional surgery. Possible clip placement was explained. The patient agreed t o the procedure. The patient was placed prone on the stereotactic table. The lesion in the breast was localized ster eotactically. The skin of the breast was prepped in sterile fashion. Superficial and deep local an esthesia was provided. A small incision was made in the skin and the biopsy probe was advanced to t he target. Using the vacuum-assisted core biopsy device, multiple core specimens were obtained. Continuous low dose infusion of local anesthesia was used during the procedure. A specimen radiograph was obtained. The radiograph demonstrated calcifications in the biopsy tissue. Using [id number] technique a marker clip was deployed at the biopsy site. Mammographic image confirmed presence of the clip. However, the clip did not anchor within the tissue and became dislodged no in the biopsy probe was removed. The probe was then removed and hemostasis obtained wi th manual compression. A compression bandage was applied. Postoperative instructions were explaine d to the patient. POST-PROCEDURE TWO VIEW DIGITAL MAMMOGRAM: An additional two view mammogram [facility] mammographic suite. Marker clip is not present in the breast. LIMITATIONS: None. FINDINGS: PATHOLOGY: Atypical ductal hyperplasia. Fibrocystic changes and microcalcifications. CONCORDANT: No. POST PROCEDURE MAMMOGRAMS FOR MARKER PLACEMENT: Yes IMPRESSION: SUCCESSFUL STEREOTACTIC-GUIDED BIOPSY OF THE LESION IN THE RIGHT BREAST. BIOPSY RESULT S ARE DISCORDANT WITH IMAGING FINDINGS. FOLLOW-UP: ALTHOUGH THE BIOPSY RESULTS DEMONSTRATE NO MALIGNANCY, THE FINDING OF ATYPICAL DUCTAL HYPE RPLASIA IS ABNORMAL AND REQUIRES FURTHER EVALUATION TO CONFIRM THAT MALIGNANCY IS NOT PRESENT ELSEWHE RE. ADDITIONALLY, THE NATURE OF THE CALCIFICATIONS ON MAMMOGRAPHY AND EXTENSIVE DISTRIBUTION IS HIGH LY SUSPICIOUS FOR DUCTAL CARCINOMA IN SITU AT LEAST. FURTHER EVALUATION MAY REQUIRE A LARGE SURGICAL EXCISION OF THE AFFECTED BREAST WHICH WOULD REQUIRE PREOP MAMMOGRAPHIC BRACKETING WITH NEEDLE/HOOK E QUIPMENT. HOWEVER, PRIOR TO ANY SURGICAL INTERVENTION, WOULD RECOMMEND MRI OF THE BREAST TO EVALUATE FOR EXTENT OF INVOLVEMENT AND DETERMINE IF ANY OTHER AREAS MAY REQUIRE PREOPERATIVE BIOPSY PRIOR TO ANY SURGICAL EXCISION. NOTIFICATION: THE PATIENT HAS BEEN PERSONALLY NOTIFIED OF THE RESULTS BY MYSELF. RECOMMENDATIONS FOR FOLLOW-UP WERE DISCUSSED, PRIMARILY A RECOMMENDATION FOR BREAST MRI AND POSSIBILITY OF FUTURE SURGIC AL EXCISION. COMMENT: Patient medication list reviewed: Yes- Quality ID# [id number]:Eligible professional attests to doc umenting in the medical record they obtained, updated, or reviewed the patient's current medications. TECHNICAL DOCUMENTATION: JOB ID: [id number]- All Rights Reserved Reading location - IP/workstation name: [email or web address]
== END ==
LOC: RAD 10:08
PROVIDERS: ATTEND Family Medicine
DX: R92.8 Other abnormal and inconclusive findings on diagnostic imaging of breast (principal); N60.91 Unspecified benign mammary dysplasia of right breast; N60.11 Diffuse cystic mastopathy of right breast; R92.0 Mammographic microcalcification found on diagnostic imaging of breast
CPT/HCPCS: 88305 ×2; 19081; J3490

== ENCOUNTER → 2018-06-14 | Outpatient (CLI) | payer OTHER | LOC: OD 13:51 | PROVIDERS: ATTEND Urology | DX: Z85.528 Personal history of other malignant neoplasm of kidney (principal) | CPT/HCPCS: 36415; 82565 ==

== ENCOUNTER 2018-10-27 02:01 | Emergency (ER) | payer OTHER ==
[2018-10-27] MEDS ORDERED: NORMAL SALINE 1000 ML 1,000 ML IV ONE (02:23)
[2018-10-27] MEDS ORDERED: VANCOMYCIN HCL INJ 1000 MG VIAL IV ONE (02:23)
[2018-10-27] MEDS ORDERED: CEFTRIAXONE 1 GM/D5W RTU 1 GM/50 ML RTUPB IV ONE (02:24)
--- NOTE | 2018-10-27 02:28 | ER Document Report ---
ED General - General TRAVEL OUTSIDE OF THE [place] IN LAST 30 DAYS: No <DONG SANFORD - Last Filed: 10/27/18 04:56> <ANGELITOMICHAEL - Last Filed: 10/27/18 10:32> - General Stated Complaint: WEAKNESS Time Seen by Provider: 10/27/18 02:12 Primary Care Provider: MANI AN MD [Primary Care Provider] - Follow up as needed Notes: Patient is a 58-year-old female with a history of metastatic renal cell carcinoma. She presents with weakness over the last several days. 3 weeks ago she was diagnosed with a pulmonary embolism by her oncologist. She was placed on Xarelto. She has been taking it since. She says she will occasionally have some bleeding. She is noticed may be some blood in her stool. She occasionally has some bloody noses. Over the last 2 days she has noticed all redness and swelling over 1 of her previous incision sites. In July of last year she had surgery on her left flank with a had a going to remove an adrenal mass. She also had a partial nephrectomy in the left side. All surgeries and care have been provided at [facility] in [facility]. Tonight she was so weak that she cannot stay on her feet. She fell. She denies any her head. No loss conscious. She says it is hard for her to get out of bed at this point. She do es take oral chemotherapy. (DONG SANFORD) - Related Data Allergies/Adverse Reactions: venom-wasp Allergy (Severe, Verified 05/21/17 08:56) Anaphylaxis codeine [Codeine] Allergy (Mild, Verified 05/21/17 08:56) Headache Past Medical History - Social History Smoking Status: Never Smoker Frequency of alcohol use: None Drug Abuse: None Family History: COPD, Hypertension - Past Medical History Cardiac Medical History: Reports: Hx Hypercholesterolemia - Good Cholesterol is too low Denies: Hx Atrial Fibrillation, Hx Congestive Heart Failure, Hx Coronary Artery Disease, Hx Heart Attack, Hx Hypertension, Hx Peripheral Vascular Disease, Hx Heart Murmur Pulmonary Medical History: Neurological Medical History: Denies: Hx Cerebrovascular Accident, Hx Seizures Endocrine Medical History: Reports: Hx Diabetes Mellitus Type 2. Denies: Hx Graves' Disease, Hx Hyperthyroidism, Hx Hypothyroidism Renal/ Medical History: Reports: Hx Kidney Stones. Denies: Hx End Stage Renal Disease, Hx Peritoneal Dialysis Musculoskeletal Medical History: Reports Hx Arthritis, Denies Hx Fibromyalgia, Denies Hx Multiple Sclerosis, Denies Hx Muscular Dystrophy Psychiatric Medical History: Denies: Hx Dementia Traumatic Medical History: Reports: Hx Fractures - left arm, left foot, middle finger/right hand, left thumb (all from sports) Past Surgical History: Reports: Hx Section, Hx Genitourinary Surgery - left kidney, Hx Kidney (Renal Surgery) - left kidney removed, Hx Orthopedic Surgery - b/l knees, Hx Tubal Ligation. Denies: Hx Appendectomy, Hx Bowel Surgery, Hx Cholecystectomy, Hx Coronary Artery Bypass Graft, Hx Gastric Bypass Surgery, Hx Herniorrhaphy, Hx Hysterectomy, Hx Mastectomy, Hx Pacemaker, Hx Tonsillectomy - Immunizations Hx Diphtheria, Pertussis, Tetanus Vaccination: Yes Hx Pneumococcal Vaccination: 05/12/15 <DONG SANFORD - Last Filed: 10/27/18 04:56> Review of Systems <DONG SANFORD - Last Filed: 10/27/18 04:56> - Review of Systems Notes: My Normal Review Basic REVIEW OF SYSTEMS: CONSTITUTIONAL : Fever EENT: Denies eye, ear, throat, or mouth pain or symptoms. Denies nasal or sinus congestion. CARDIOVASCULAR: Denies chest pain. RESPIRATORY: Denies cough, cold, or chest congestion. Denies shortness of breath, difficulty breathing, or wheezing. GASTROINTESTINAL: Denies abdominal pain. Some nausea. No vomiting. GENITOURINARY: Denies difficulty urinating, painful urination, burning, frequency, or blood in urine. MUSCULOSKELETAL: Denies neck or back pain or joint pain or swelling. SKIN: Cellulitis over left surgical incision site. HEMATOLOGIC : Denies easy bruising or bleeding. LYMPHATIC: Denies swollen, enlarged glands. NEUROLOGICAL: Denies altered mental status or loss of consciousness. Denies headache. Denies weakness or paralysis or loss of use of either side. Denies sensory or motor loss. ALL OTHER SYSTEMS REVIEWED AND NEGATIVE. (DONG SANFORD) Physical Exam <DONG SANFORD - Last Filed: 10/27/18 04:56> - Vital signs Vitals: Resp Pulse Ox 31 H 94 10/27/18 02:28 10/27/18 02:28 - Notes Notes: General Appearance: Well nourished, alert, cooperative, no acute distress, no obvious discomfort. Very weak appearing. Vitals: reviewed, See vital signs table. Head: no swelling or tenderness to the head Eyes: PERRL, EOMI, Conjuctiva clear Mouth: No decreasd moisture Neck: Supple, no neck tenderness, No thyromegaly Lungs: No wheezing, No rales, No rhonci, No accessory muscle use, good air exchange bilaterally. Heart: Tachycardic rate, Regular rythm, No murmur, no rub Abdomen: Normal BS, soft, No rigidity, No abdominal tenderness, No guarding, no rebound, no abdominal masses, no organomegaly Extremities: strength 5/5 in all extremities, good pulses in all extremities, no swelling or tenderness in the extremities, no edema. Skin: warm, dry, appropriate color, he has 2 large surgical scars on her left flank. When the scars has a large amount erythema and some breakdown consistent with infection. Neuro: speech clear, oriented x 3, normal affect, responds appropriately to que stions. (DONG SANFORD) Course - Laboratory Result Diagrams: 10/27/18 02:26 10/27/18 02:26 <DONG SANFORD - Last Filed: 10/27/18 04:56> - Laboratory Result Diagrams: 10/27/18 02:26 10/27/18 02:26 <MICHAEL EATON - Last Filed: 10/27/18 10:32> - Re-evaluation Re-evalutation: 10/27/18 04:08 Patient has weakness and is well-appearing. She has what appears to be a spread ing cellulitis over her left leg. I suspect this is probably the source of her weakness. Hemoglobin is normal. I think is unlikely that she is having significant hemorrhage at this time being that her hemoglobin is normal. Blood pressure has improved with IV fluids. Tachycardia is also improved. Lactic acid is elevated. I did talk to the family. I talked to him about possibly discussing with admission here with her hospice versus going to [facility]. I informed him the hospitalist may still recommend going to [place] based on the fact that she had her surgery there and that the cellulitis is over the location of her previous surgical incisions site and also being that all her care has been through [facility] and all her doctors are there including her oncologist. Family themselves actually prefer to go divided and therefore I will call [facility]. I have spoken with the transfer center and they are trying to get in touch with the hospitalist for me at this time. 10/27/18 04:[address] Hicks, oncology hospitalist at [facility], who agrees to accept the patient for transfer. He does request that I obtain a ultrasound over the area of cellulitis in the meantime. This has been ordered and I did speak with the client technologies analyst in regards to looking at the area of cellulitis look for any evidence of underlying abscess. Patient remained stable. Vital signs remained improved. Blood pressures remained stable since receiving IV fluids. Antibiotics have been administered. (DONG SANFORD) 10/27/18 10:32 transport at bedside patient stable for transport at this time. (MICHAEL EATON) - Vital Signs Vital signs: Temp Pulse Resp BP Pulse Ox 99.1 F 19 120/55 L 95 10/27/18 10:05 10/27/18 09:00 10/27/18 08:01 10/27/18 08:00 - Laboratory Laboratory results interpreted by me: 10/27/18 10/27/18 10/27/18 02:26 02:26 02:26 MCV 77 L MCH 25.6 L RDW 19.8 H Plt Count 133 L Seg Neutrophils % 82.1 H Lymphocytes % 12.4 L Absolute Neutrophils 8.3 H Sodium 124.3 L Chloride 92 L Carbon Dioxide 15 L BUN 42 H Creatinine 2.23 H Est GFR ( Amer) 27 L Est GFR (Non-Af Amer) 23 L Glucose 239 H Lactic Acid 2.9 H Calcium 8.2 L Direct Bilirubin 0.6 H AST 67 H Albumin 3.1 L Discharge <DONG SANFORD - Last Filed: 10/27/18 04:56> <MICHAEL EATON - Last Filed: 10/27/18 10:32> - Discharge Clinical Impression: Metabolic acidosis Cellulitis Qualifiers: Site of cellulitis: trunk Site of cellulitis of trunk: unspecified site Qualified Code(s): L03.319 - Cellulitis of trunk, unspecified Hypotension Qualifiers: Hypotension type: unspecified hypotension type Qualified Code(s): I95.9 - Hypotension, unspecified Condition: Stable Disposition: [facility] Referrals: MANI AN MD [Primary Care Provider] - Follow up as needed
[2018-10-27 02:48] LABS: ABSOLUTE LYMPHOCYTES (AUTO) 1.3 10^3/uL (0.5-4.7); ABSOLUTE MONOCYTES (AUTO) 0.5 10^3/uL (0.1-1.4); ABSOLUTE NEUT (AUTO) 8.3 10^3/uL (1.7-8.2); BASOPHILS % (AUTO) 0.3 % (0-2); EOSINOPHILS % (AUTO) 0.1 % (0-6); HEMATOCRIT 36.9 % (36.0-47.0); HEMOGLOBIN 12.3 g/dL (12.0-15.5); LYMPHOCYTES % (AUTO) 12.4 % (13-45); MEAN CORPUSCULAR HEMOGLOBIN 25.6 pg (27.0-33.4); MEAN CORPUSCULAR HGB CONC 33.4 g/dL (32.0-36.0); MEAN CORPUSCULAR VOLUME 77 fl (80-97); MONOCYTES % (AUTO) 5.1 % (3-13); PLATELET COUNT 133 10^3/uL (150-450); RED BLOOD COUNT 4.83 10^6/uL (3.72-5.28); RED CELL DISTRIBUTION WIDTH 19.8 % (11.5-14.0); SEGMENTED NEUTROPHILS % (AUTO) 82.1 % (42-78); TOTAL CELLS COUNTED % (AUTO) 100 %; WHITE BLOOD COUNT 10.1 10^3/uL (4.0-10.5)
[2018-10-27 02:56] LABS: ALANINE AMINOTRANSFERASE 44 U/L (9-52); ALBUMIN 3.1 g/dL (3.5-5.0); ALKALINE PHOSPHATASE 99 U/L (38-126); ANION GAP 17 (5-19); ASPARTATE AMINO TRANSFERASE 67 U/L (14-36); BILIRUBIN,DIRECT 0.6 mg/dL (0.0-0.4); BILIRUBIN,TOTAL 1.1 mg/dL (0.2-1.3); BLOOD UREA NITROGEN 42 mg/dL (7-20); CALCIUM 8.2 mg/dL (8.4-10.2); CARBON DIOXIDE 15 mmol/L (22-30); CHLORIDE 92 mmol/L (98-107); GLUCOSE 239 mg/dL (75-110); POTASSIUM 4.2 mmol/L (3.6-5.0); SODIUM 124.3 mmol/L (137-145); TOTAL PROTEIN 6.3 g/dL (6.3-8.2)
--- NOTE | 2018-10-27 03:28 | RADIOLOGY REPORT (SQ) ---
CLINICAL HISTORY: weakness COMPARISON: None. 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 Lungs are clear without consolidation, atelectasis, mass or edema. There is no pleural effusion. There is no pneumothorax. There are no acute osseous findings. IMPRESSION: Clear lungs.
--- NOTE | 2018-10-27 06:24 | RADIOLOGY REPORT (SQ) ---
EXAM DESCRIPTION: US ABDOMEN LIMITED COMPLETED DATE/TME: 10/27/2018 04:41 CLINICAL HISTORY: 58 years Female, scan cellulitis on right flankto look for fluid Comparison: CT, December 13, 2015 LIMITATIONS: None. FINDINGS: 8 x 5 x 7 cm partially visualized nonencapsulated fluid collection in an area of indicated symptomatology at the left flank including subcutaneous and deep soft tissues; cannot exclude intraperitoneal involvement. IMPRESSION: Indeterminate 8 x 5 x 7 cm partially visualized nonencapsulated fluid collection in an area of indicated symptomatology at the left flank including subcutaneous and deep soft tissues; possible intra-abdominal involvement. Differential diagnosis includes complex seroma and hematoma. Recommend IV and oral contrast CT surveillance.
[2018-10-27] MEDS ORDERED: ACETAMINOPHEN 325 MG TABLET PO ONE (07:42)
[2018-10-27] MEDS ORDERED: ACETAMINOPHEN 325 MG TABLET ONE (08:07)
[2018-10-27 19:50] VITALS: BP 109/54
== END 2018-10-27 10:42 | disposition short-term general hospital (02) ==
LOC: ER 02:01
DX: E87.2 Acidosis (principal); L03.319 Cellulitis of trunk, unspecified; R53.1 Weakness; E78.00 Pure hypercholesterolemia, unspecified; I95.9 Hypotension, unspecified; E11.9 Type 2 diabetes mellitus without complications; Z87.442 Personal history of urinary calculi; Z98.51 Tubal ligation status; Z85.89 Personal history of malignant neoplasm of other organs and systems; Z86.711 Personal history of pulmonary embolism; Z79.01 Long term (current) use of anticoagulants; W19.XXXA Unspecified fall, initial encounter
CPT/HCPCS: 99285; 96375; 96365; 36415; 87040; 85025; 80053; 84484; 83605; 71045; 76705; J7030; J3370; J0696

== ENCOUNTER 2018-12-22 13:14 | Emergency (ER) | payer OTHER ==
--- NOTE | 2018-12-22 13:29 | ER Document Report ---
ED Medical Screen (RME) - General Chief Complaint: High Blood Sugar Stated Complaint: BLOOD SUGAR ISSUES Time Seen by Provider: 12/22/18 13:19 Primary Care Provider: NIRU BERMUDEZ MD [Primary Care Provider] - Follow up as needed Mode of Arrival: Ambulatory Information source: Patient Notes: Patient is a 50-year-old female who presents to the emergency department with concerns of high blood sugar. Patient reports her blood sugar usually runs about 150 and for the last 2 days it has been 300-350. She denies any fever, nausea or vomiting. She states that she was hospitalized last month and they took her off of all of her diabetic medications due to complications with a colostomy. She states while she was in the hospital she was taking insulin. She normally does not take insulin. Patient does report urinary frequency but denies dysuria. Exam: Patient alert, oriented and in no acute distress. Lung sounds are clear to auscultation bilaterally. I have greeted and performed a rapid initial assessment of this patient. A comprehensive ED assessment and evaluation of the patient, analysis of test results and completion of the medical decision making process will be conducted by additional ED providers. Dictation of this chart was performed using voice recognition software; therefore, there may be some unintended grammatical errors. TRAVEL OUTSIDE OF THE [place] IN LAST 30 DAYS: No - Related Data Allergies/Adverse Reactions: venom-wasp Allergy (Severe, Verified 12/22/18 13:18) Anaphylaxis codeine [Codeine] Allergy (Mild, Verified 12/22/18 13:18) Headache Past Medical History - Past Medical History Cardiac Medical History: Reports: Hx Hypercholesterolemia - Good Cholesterol is too low Denies: Hx Atrial Fibrillation, Hx Congestive Heart Failure, Hx Coronary Artery Disease, Hx Heart Attack, Hx Hypertension, Hx Peripheral Vascular Disease, Hx Heart Murmur Pulmonary Medical History: Neurological Medical History: Denies: Hx Cerebrovascular Accident, Hx Seizures Endocrine Medical History: Reports: Hx Diabetes Mellitus Type 2. Denies: Hx Graves' Disease, Hx Hyperthyroidism, Hx Hypothyroidism Renal/ Medical History: Reports: Hx Kidney Stones. Denies: Hx End Stage Renal Disease, Hx Peritoneal Dialysis Musculoskeltal Medical History: Reports Hx Arthritis, Denies Hx Fibromyalgia, Denies Hx Multiple Sclerosis, Denies Hx Muscular Dystrophy Psychiatric Medical History: Denies: Hx Dementia Traumatic Medical History: Reports: Hx Fractures - left arm, left foot, middle finger/right hand, left thumb (all from sports) Past Surgical History: Reports: Hx Section, Hx Genitourinary Surgery - left kidney, Hx Kidney (Renal Surgery) - left kidney removed, Hx Orthopedic Surgery - b/l knees, Hx Tubal Ligation. Denies: Hx Appendectomy, Hx Bowel Surgery, Hx Cholecystectomy, Hx Coronary Artery Bypass Graft, Hx Gastric Bypass Surgery, Hx Herniorrhaphy, Hx Hysterectomy, Hx Mastectomy, Hx Pacemaker, Hx Tonsillectomy - Immunizations Hx Diphtheria, Pertussis, Tetanus Vaccination: Yes Physical Exam - Vital signs Vitals: Temp Pulse Resp BP Pulse Ox 97.6 F 80 16 136/46 H 98 12/22/18 13:18 12/22/18 13:18 12/22/18 13:18 12/22/18 13:18 12/22/18 13:18 Course - Vital Signs Vital signs: Temp Pulse Resp BP Pulse Ox 97.6 F 80 16 136/46 H 98 12/22/18 13:18 12/22/18 13:18 12/22/18 13:18 12/22/18 13:18 12/22/18 13:18 Doctor's Discharge - Discharge Referrals: NIRU BERMUDEZ MD [Primary Care Provider] - Follow up as needed
[2018-12-22 13:48] LABS: ABSOLUTE BASOPHILS # (AUTO) 0.1 10^3/uL (0.0-0.2); ABSOLUTE EOSINOPHILS # (AUTO) 0.2 10^3/uL (0.0-0.6); ABSOLUTE LYMPHOCYTES (AUTO) 2.2 10^3/uL (0.5-4.7); ABSOLUTE MONOCYTES (AUTO) 0.6 10^3/uL (0.1-1.4); ABSOLUTE NEUT (AUTO) 5.9 10^3/uL (1.7-8.2); BASOPHILS % (AUTO) 0.6 % (0-2); EOSINOPHILS % (AUTO) 2.1 % (0-6); HEMATOCRIT 32.2 % (36.0-47.0); HEMOGLOBIN 10.9 g/dL (12.0-15.5); LYMPHOCYTES % (AUTO) 24.6 % (13-45); MEAN CORPUSCULAR HEMOGLOBIN 28.1 pg (27.0-33.4); MEAN CORPUSCULAR HGB CONC 33.9 g/dL (32.0-36.0); MEAN CORPUSCULAR VOLUME 83 fl (80-97); MONOCYTES % (AUTO) 6.2 % (3-13); PLATELET COUNT 278 10^3/uL (150-450); RED BLOOD COUNT 3.88 10^6/uL (3.72-5.28); RED CELL DISTRIBUTION WIDTH 21.7 % (11.5-14.0); SEGMENTED NEUTROPHILS % (AUTO) 66.5 % (42-78); TOTAL CELLS COUNTED % (AUTO) 100 %; WHITE BLOOD COUNT 8.8 10^3/uL (4.0-10.5)
[2018-12-22 14:02] LABS: ALANINE AMINOTRANSFERASE 31 U/L (9-52); ALBUMIN 3.7 g/dL (3.5-5.0); ALKALINE PHOSPHATASE 100 U/L (38-126); ANION GAP 7 (5-19); ASPARTATE AMINO TRANSFERASE 20 U/L (14-36); BILIRUBIN,DIRECT 0.2 mg/dL (0.0-0.4); BILIRUBIN,TOTAL 0.6 mg/dL (0.2-1.3); BLOOD UREA NITROGEN 27 mg/dL (7-20); CALCIUM 9.8 mg/dL (8.4-10.2); CARBON DIOXIDE 26 mmol/L (22-30); CHLORIDE 105 mmol/L (98-107); GLUCOSE 260 mg/dL (75-110); POTASSIUM 4.6 mmol/L (3.6-5.0); SODIUM 138.3 mmol/L (137-145)
[2018-12-22 15:07] LABS: AMORPHOUS SEDIMENT,URINE TRACE /HPF; APPEARANCE,URINE SLIGHTLY-CLOUDY; BILIRUBIN,URINE NEGATIVE (NEGATIVE); COLOR,URINE YELLOW; GLUCOSE, URINE NEGATIVE (NEGATIVE); KETONES,URINE NEGATIVE (NEGATIVE); LEUKOCYTE ESTERASE,URINE LARGE (NEGATIVE); NITRITE,URINE NEGATIVE (NEGATIVE); PROTEIN,URINE NEGATIVE (NEGATIVE); URINE SPECIFIC GRAVITY 1.013; UROBILINOGEN,URINE NEGATIVE mg/dL (<2.0)
--- NOTE | 2018-12-22 16:39 | ER Document Report ---
ED Blood Sugar Problem - General Chief Complaint: High Blood Sugar Stated Complaint: BLOOD SUGAR ISSUES Time Seen by Provider: 12/22/18 13:19 Primary Care Provider: NIRU BERMUDEZ MD [Primary Care Provider] - Follow up as needed Mode of Arrival: Ambulatory Information source: Patient TRAVEL OUTSIDE OF THE [place] IN LAST 30 DAYS: No - HPI Patient complains to provider of: Elevated BGL Onset: Last week Notes: Patient is here with complaints of elevated blood sugar. The patient has a history of type 2 diabetes. She used to be on metformin as well as a weekly injection. She apparently developed a fistula and was admitted to [facility] and was discharged last week. She tells me that while she was in the hospital, they were checking her blood sugar and were giving her insulin based on what her blood sugar was. On her discharge papers, she was told to stop taking her m etformin. She states that over the last few days she has noticed her blood sugars been in the 2 and 300s. She denies any symptoms. No fevers. No dysuria or hematuria. No nausea, vomiting. No chest pain or shortness of breath. Her biggest concern was that her sugars were high. She attempted to contact her primary care doctor yesterday, but never heard back from them. States that otherwise she feels fine. She denies any dysuria, hematuria, frequency. No other complaints at this time. - Related Data Allergies/Adverse Reactions: venom-wasp Allergy (Severe, Verified 12/22/18 13:18) Anaphylaxis codeine [Codeine] Allergy (Mild, Verified 12/22/18 13:18) Headache Past Medical History - General Information source: Patient - Social History Smoking Status: Never Smoker Family History: COPD, Hypertension Patient has suicidal ideation: No Patient has homicidal ideation: No - Past Medical History Cardiac Medical History: Reports: Hx Hypercholesterolemia - Good Cholesterol is too low Denies: Hx Atrial Fibrillation, Hx Congestive Heart Failure, Hx Coronary Artery Disease, Hx Heart Attack, Hx Hypertension, Hx Peripheral Vascular Disease, Hx Heart Murmur Pulmonary Medical History: Neurological Medical History: Denies: Hx Cerebrovascular Accident, Hx Seizures Endocrine Medical History: Reports: Hx Diabetes Mellitus Type 2. Denies: Hx Graves' Disease, Hx Hyperthyroidism, Hx Hypothyroidism Renal/ Medical History: Reports: Hx Kidney Stones. Denies: Hx End Stage Renal Disease, Hx Peritoneal Dialysis Musculoskeletal Medical History: Reports Hx Arthritis, Denies Hx Fibromyalgia, Denies Hx Multiple Sclerosis, Denies Hx Muscular Dystrophy Psychiatric Medical History: Denies: Hx Dementia Traumatic Medical History: Reports: Hx Fractures - left arm, left foot, middle finger/right hand, left thumb (all from sports) Past Surgical History: Reports: Hx Section, Hx Genitourinary Surgery - left kidney, Hx Kidney (Renal Surgery) - left kidney removed, Hx Orthopedic Surgery - b/l knees, Hx Tubal Ligation. Denies: Hx Appendectomy, Hx Bowel Surgery, Hx Cholecystectomy, Hx Coronary Artery Bypass Graft, Hx Gastric Bypass Surgery, Hx Herniorrhaphy, Hx Hysterectomy, Hx Mastectomy, Hx Pacemaker, Hx Tonsillectomy - Immunizations Hx Diphtheria, Pertussis, Tetanus Vaccination: Yes Hx Pneumococcal Vaccination: 05/12/15 Review of Systems - Review of Systems -: Yes All other systems reviewed and negative Physical Exam - Vital signs Vitals: Temp Pulse Resp BP Pulse Ox 97.6 F 80 16 136/46 H 98 12/22/18 13:18 12/22/18 13:18 12/22/18 13:18 12/22/18 13:18 12/22/18 13:18 - Notes Notes: GENERAL: alert, cooperative, nontoxic, no distress. HEAD: normocephalic, atraumatic EYES: conjunctiva pink without discharge, no external redness or swelling. EARS: no external swelling, no external redness NOSE: atraumatic, no external swelling MOUTH/THROAT: mucous membranes moist and pink, posterior pharynx without erythema, swelling, exudate. No trismus or drooling. NECK: soft, supple, full range of motion, no meningismus. CHEST: no distress, lungs clear and equal throughout. No wheezing, rales, rhonchi. CARDIAC: regular rate and rhythm, no murmur, normal capillary refill, normal pulses. No peripheral edema noted. ABDOMEN: Soft, nontender. Fistula drainage to the left lateral abdomen. No surrounding redness. BACK: full range of motion, no CVA tenderness. EXTREMITIES: full range of motion of all extremities. No redness, no swelling. NEURO: alert and oriented x 3, no focal deficits, full range of motion of all extremities. PYSCH: appropriate mood, affect. Patient is cooperative. SKIN: pink, warm, dry, no rash. Course - Re-evaluation Re-evalutation: 12/22/18 16:36 Patient is nontoxic-appearing with stable vitals. Patient is here with complaints of elevated blood sugar. The patient has a history of type 2 diabetes, she is to be on metformin and an injectable antidiabetic medication that she would take weekly. She was admitted to [facility] over the last few weeks and was told to stop taking her metformin. She states that her blood sugars been running in the 2 and 300. She denies any other complaints or symptoms. On exam she looks well. She has a nontoxic exam. Her blood sugar is noted to be mildly elevated at 260. Bicarb is normal, no signs of DKA. Urinalysis shows no ketones. Possible UTI on UA, the patient has no UTI symptoms. I discussed the UA findings with the patient, she states that she would prefer to not be on antibiotics and would rather us send a culture and karen l her back if she is positive. We believe that this is reasonable at this time as the patient has no symptoms. This point I instructed the patient to contact her primary care doctor as well as the hospitalist at [facility] who told her to stop taking her metformin to determine if she needs to restart her metformin or needs to be placed on a different medications to help keep her blood sugar unde r control. She verbalized understanding of this. This point the patient will be discharged home. The patient's emergency department workup and current diagnosis were explained to the patient and or family. Follow-up instructions were provided. Medications if prescribed were discussed. Instructions for when to return to the emergency department including specific worrisome symptoms were discussed with the patient and/or family. - Vital Signs Vital signs: Temp Pulse Resp BP Pulse Ox 97.6 F 80 16 136/46 H 98 12/22/18 13:18 12/22/18 13:18 12/22/18 13:18 12/22/18 13:18 12/22/18 13:18 - Laboratory Result Diagrams: 12/22/18 13:33 12/22/18 13:33 Laboratory results interpreted by me: 12/22/18 12/22/18 12/22/18 13:33 13:33 14:19 Hgb 10.9 L Hct 32.2 L RDW 21.7 H BUN 27 H Glucose 260 H Ur Leukocyte Esterase LARGE H Discharge - Discharge Clinical Impression: Hyperglycemia due to type 2 diabetes mellitus Qualifiers: Diabetes mellitus halfway insulin use: unspecified halfway insulin use status Qualified Code(s): E11.65 - Type 2 diabetes mellitus with hyperglycemia Condition: Stable Disposition: HOME, SELF-CARE Instructions: Hyperglycemia ([facility]) Additional Instructions: Contact her primary care doctor as well as the hospitalist at [facility] to determine if they really want you off of your metformin or if they would like to start you on a new medication to keep your blood sugar under control. Follow- up for any worsening symptoms, high fever, persistent vomiting, or for any further concerns. Referrals: NIRU BERMUDEZ MD [Primary Care Provider] - Follow up as needed
[2018-12-22 16:50] VITALS: BP 125/49
== END 2018-12-22 16:50 | disposition home or self-care (01) ==
LOC: ER 13:14
DX: E11.65 Type 2 diabetes mellitus with hyperglycemia (principal); K63.2 Fistula of intestine; Z87.892 Personal history of anaphylaxis; Z91.038 Other insect allergy status; Z88.5 Allergy status to narcotic agent
CPT/HCPCS: 36415; 80053; 81001; 85025; 87086; 87088; 87186; 99284

== ENCOUNTER 2019-06-26 11:12 | Day surgery (SDC) | payer MEDICARE, OTHER ==
[~2019-06-26 11:12] MED LIST changes: +CHONDR SU A NA/HYALUR INTRAOC KIT (SURGICARE) ONE; +DORZOLAMIDE HCL 2%/TIMOLOL MALEAT 0.5% OPH SOLN 10 ML OD PRN; +EPINEPHRINE INJ/PF 1 MG/1 ML AMPULE ONE; +FENTANYL CITRATE INJ/PF 100 MCG/2 ML AMPUL ONE; +KETOROLAC TROMETHAMINE 0.45% 4 DROP/0.4 ML DROPERETTE OD PRN; +LIDOCAINE 1% INJ-PF (10 MG/ML) 30 ML SDV ONE; -LIDOCAINE 1%/EPINEPHRINE INJ 20 ML VIAL ONE; +MIDAZOLAM 2 MG/2 ML INJ ONE; +ONDANSETRON HCL INJ/PF 4 MG/2 ML SDV ONE; +TOBRAMYCIN SULFATE/DEXAMETH OPH OINTMENT 3.5 GM ONE
[2019-06-26] MEDS: TETRACAINE HCL 0.5% OPH SOLN 4 ML OD PRN ×3 (11:32→11:54)
[2019-06-26] MEDS: BESIFLOXACIN HCL 0.6% OPH SUSP 5 ML BOTTLE OD PRN ×3 (11:32→12:14)
[2019-06-26] MEDS: CYCLOPENTOLATE 0.2%/PHENYLEPHRINE 1% OPH SOLN 2 ML OD PRN ×3 (11:32→11:53)
[2019-06-26] MEDS: TROPICAMIDE 1% OPH SOLN 15 ML OD PRN ×3 (11:32→11:53)
== END 2019-06-26 12:51 | disposition home or self-care (01) ==
LOC: SC 11:12
PROVIDERS: ATTEND Ophthalmology
DX: H25.11 Age-related nuclear cataract, right eye (principal); E11.9 Type 2 diabetes mellitus without complications; Z79.84 Long term (current) use of oral hypoglycemic drugs; Z85.528 Personal history of other malignant neoplasm of kidney; Z90.5 Acquired absence of kidney; Z85.3 Personal history of malignant neoplasm of breast; Z90.49 Acquired absence of other specified parts of digestive tract
CPT/HCPCS: 66984; 82962; 00142; V2632; J2250; J3490 ×4; A9270; J0171; J3010; 142; J2405

== ENCOUNTER 2019-07-17 12:48 | Day surgery (SDC) | payer MEDICARE, OTHER ==
[~2019-07-17 12:48] MED LIST changes: -DORZOLAMIDE HCL 2%/TIMOLOL MALEAT 0.5% OPH SOLN 10 ML OD PRN; -FENTANYL CITRATE INJ/PF 100 MCG/2 ML AMPUL ONE; -KETOROLAC TROMETHAMINE 0.45% 4 DROP/0.4 ML DROPERETTE OD PRN; +KETOROLAC TROMETHAMINE 0.45% 4 DROP/0.4 ML DROPERETTE OS PRN; -MIDAZOLAM 2 MG/2 ML INJ ONE; -ONDANSETRON HCL INJ/PF 4 MG/2 ML SDV ONE; -TOBRAMYCIN SULFATE/DEXAMETH OPH OINTMENT 3.5 GM ONE
[2019-07-17] MEDS: TETRACAINE HCL 0.5% OPH SOLN 4 ML OS PRN ×3 (14:25→14:56)
[2019-07-17] MEDS: BESIFLOXACIN HCL 0.6% OPH SUSP 5 ML BOTTLE OS PRN ×3 (14:25→15:11)
[2019-07-17] MEDS: TROPICAMIDE 1% OPH SOLN 15 ML OS PRN ×3 (14:25→14:45)
[2019-07-17] MEDS: CYCLOPENTOLATE 0.2%/PHENYLEPHRINE 1% OPH SOLN 2 ML OS PRN ×3 (14:25→14:45)
[2019-07-17] MEDS ORDERED: MIDAZOLAM 2 MG/2 ML INJ ONE (14:38)
[2019-07-17] MEDS ORDERED: FENTANYL CITRATE INJ/PF 100 MCG/2 ML AMPUL ONE (14:39)
[2019-07-17] MEDS ORDERED: CHONDR SU A NA/HYALUR SOD 0.5 ML DISP.SYRIN ONE (14:44)
[2019-07-17] MEDS: DORZOLAMIDE HCL 2%/TIMOLOL MALEAT 0.5% OPH SOLN 10 ML OS PRN ×2 (15:06→15:11)
[2019-07-17] MEDS: TOBRAMYCIN SULFATE/DEXAMETH OPH OINTMENT 3.5 GM ONE ×2 (15:07→15:11)
== END 2019-07-17 15:50 | disposition home or self-care (01) ==
LOC: SC 12:48
PROVIDERS: ATTEND Ophthalmology
DX: H25.12 Age-related nuclear cataract, left eye (principal); E11.9 Type 2 diabetes mellitus without complications; Z79.84 Long term (current) use of oral hypoglycemic drugs; Z79.899 Other long term (current) drug therapy; Z88.5 Allergy status to narcotic agent; Z98.41 Cataract extraction status, right eye; Z85.3 Personal history of malignant neoplasm of breast; Z85.528 Personal history of other malignant neoplasm of kidney
CPT/HCPCS: 66984; 82962; 00142; V2632; J2250; J3490 ×4; A9270 ×2; J0171; J3010; 142